=== PATIENT | male | born 1990 | race Caucasian/White ===

== ENCOUNTER → 2018-01-08 10:01 | Outpatient (CLI) | payer BC, SELFPAY ==
[2018-01-08 12:45] LABS: Anion Gap 10 (5-15); BUN 10 mg/dL (7-18); BUN/Creat Ratio 13.6 RATIO (10-20); Calcium,Total 8.6 mg/dL (8.5-10.1); Chloride 106 mmol/L (98-107); Cholesterol 205 mg/dL (200); Creatinine, Serum 0.74 mg/dL (0.70-1.30); EST Glomerular Filtration Rate 134 mL/min (>60); Est Glom Filt Rate - Afr Amer 162 mL/min (>60); Glucose 86 mg/dL (74-106); High Density Lipoprotein 67 mg/dL; Potassium 3.7 mmol/L (3.5-5.1); Sodium Level 139 mmol/L (136-145); Triglycerides 77 mg/dL; Very Low Density Lipoprotein 15 mg/dL (5-40)
== END ==
PROVIDERS: Family Provider Family Medicine; PCP Family Medicine; Visit Provider Family Medicine
DX: Z00.00 Encounter for general adult medical examination without abnormal findings (principal); F32.9 Major depressive disorder, single episode, unspecified
CPT/HCPCS: 36415; 80048; 80061; 84443

== ENCOUNTER 2022-11-21 13:10 | Emergency (ER) | payer BC, SELFPAY ==
[2022-11-21 13:11] VITALS: BP 162/107; PULSE 117; RESP 18; TEMP 36.4; O2SAT 100; BMI 29.2
[2022-11-21 13:20] VITALS: BP 159/125; PULSE 83; RESP 16; O2SAT 100
--- NOTE | 2022-11-21 13:42 | EKG12_ITS ---
Test Reason : SOB Blood Pressure : / mmHG Vent. Rate : 082 BPM Atrial Rate : 082 BPM P-R Int : 122 ms QRS Dur : 090 ms QT Int : 426 ms P-R-T Axes : 097 -19 -19 degrees QTc Int : 497 ms Normal sinus rhythm with sinus arrhythmia Prolonged QT Abnormal ECG Confirmed by MICHAEL DUBON, CINDI ([id number]), manager editorial MARQUIS GARCIA ([id number]) on 11/25/2022 8:53:53 AM Referred By: Confirmed By:CINDI RODRIGUEZ MD
--- NOTE | 2022-11-21 13:43 | ED.VIS.GI ---
HPI HPI - GI History of Present Illness Chief Complaint: Shortness of Breath Informant: patient Abdominal Pain/Flank Pain Onset: - (no abd pain) Nausea/Vomiting/Emesis GI Symptom: Positive for Nausea and Vomiting Onset: Days (4) Quality: Positive for Nonbilious; Negative for Blood streaks Severity: Severe Diarrhea/Melena/Hematochezia GI Symptom: Positive for Diarrhea; Negative for Melena or Hematochezia Onset: Days (3-4) Stool Quality: Positive for Loose Severity: Mild Associated Symptoms Associated Symptoms: Negative for Dysuria, Frequency or Hematuria Narrative Narrative: Patient has had vomiting and diarrhea for several days now, no abdominal pain. He is on medications for anxiety, alprazolam, as well as hypertension, lisinopril. He has not been able to take either of those medications at all for the last 3 days. This morning he woke up and felt a little short of breath. He states he had a stressful conversation with someone from work and that made him feel worse with regards to his breathing, and he states now for the past hour or so he has had some mild discomfort across to his chest nonlateralizing nonradiating. It is nonpleuritic. He denies any palpitations, near-syncope, syncope. No leg pain or swelling lately. No recent travel out of the area. No suspicious food intake, no known contact with anyone else who has been ill, no coughing or fevers/chills. [facility] Medical History Anxiety HTN (hypertension) Home Medications alprazolam 2 mg tablet 2 mg PO QHS 11/21/22 [History Last Taken Unknown] lisinopril 20 mg tablet 20 mg PO DAILY 11/21/22 [History Last Taken Unknown] promethazine 25 mg tablet 25 mg PO Q6H PRN PRN Nausea #20 TABLETS 11/21/22 [Rx Last Taken Unknown] Allergy/AdvReac Type Severity Reaction Status Date / Time No Known Allergies Allergy Verified 07/29/15 13:19 Social History Smoking Status: Current every day smoker tobacco type: cigarettes ROS ROS ED Constitutional Constitutional ED: Denies chills or fever(s) Eyes Eyes: Denies change in vision or diplopia ENT ENT ED: Denies rhinorrhea or sore throat Cardiovascular Cardiovascular: Reports chest pain; Denies palpitations Respiratory/Chest Respiratory/Chest: Reports dyspnea; Denies cough Gastrointestinal Gastrointestinal: Reports diarrhea, nausea and vomiting; Denies abdominal pain or melena Genitourinary Genitourinary ED: Denies dysuria or hematuria Musculoskeletal Musculoskeletal: Denies back pain or neck pain Integumentary Denies abscess or rash Neurologic Neurologic: Denies headache(s), paresthesias or weakness Psychiatric Psychiatric: Reports anxiety; Denies suicidal thoughts EXAM Physical Exam Const Vital Signs: 11/21/22 13:11 11/21/22 13:20 11/21/22 15:41 Temperature 97.6 F L Temperature Source Temporal Pulse Rate 117 H 83 78 Respiratory Rate 18 16 Blood Pressure 162/107 H 159/125 H 151/100 H Blood Pressure Mean 125 136 117 Pulse Ox 100 100 Oxygen Delivery Method Room Air Room Air Positive well nourished and well developed General Appearance ED: well developed and NAD HEENT Reports moist mucous membranes normocephalic and atraumatic Eyes PERRL and EOMs intact bilaterally Neck full ROM and supple Resp normal respiratory effort and clear to auscultation bilaterally Cardio regular rate, regular rhythm and no murmurs Rate: Negative for tachycardic GI non-tender and non-distended Auscultation: normoactive bowel sounds Palpation: soft Back/Spine no CVA tenderness General Back: other FROM Extremity normal to inspection General Extremety ED: Negative for edema, pulses abnormal or tenderness General Extremity: Negative for edema or pulses abnormal Neuro oriented x3, CN's II-XII intact bilaterally and no sensory deficits noted Sensorium / Orientation: awake and alert Motor Exam: strength 5/5 throughout Psych Mood & Affect: anxious Skin no rashes or lesions noted and no wounds MDM MDM MDM Narrative Medical decision making narrative: Screening labs were obtained as well as a chest x-ray given his complaints of vomiting and shortness of breath. No abdominal pain reported/admitted to. After giving the patient IV fluids and Zofran, he is feeling better although he did have another episode of vomiting and then was treated with Reglan which really helped and he was tolerating oral fluids after that. He had no more dyspnea even though we did not treat him with anything specific for that, I suspect some of that may have been anxiety. However, his labs returned showing elevated liver enzymes as well as a slightly elevated lipase. He has had no pain, so I went to obtain an ultrasound of the right upper quadrant, but upon discussing with the patient, he states he just had this as an outpatient 3 weeks ago because of elevated liver enzymes last year that were obtained by his PCP as an outpatient. I reviewed outside ultrasound from 10/27/2022, as well as LFTs from May 2022, both from [facility] [place]. In May, his AST was 373, ALT 260, alkaline phosphatase normal 79, total bilirubin 0.7. The abnormal labs are all slightly higher today, his alkaline phosphatase is still within normal limits, total bilirubin just slightly higher at 1.1. I discussed that with him. The etiology of this is undetermined, but the ultrasound that he had 3 weeks ago showed fatty infiltration of the liver and no gallbladder or biliary pathology and no cholelithiasis. It is unknown if his current symptoms are related to these abnormalities and fatty liver disease, or if he has acute viral gastroenteritis. He did not provide diarrhea here for me to send for testing, is feeling much better and keeping down oral fluids. Does not have an acute leukocytosis. At this time I think it is reasonable to send him home with close outpatient follow-up. He is amenable to that, his blood pressure is elevated but not emergently so, probably because he has not been able to take his blood pressure medication recently, he states his blood pressure was in the 170s when he was prescribed the lisinopril that he has been trying to take. I do not think he needs emergent intervention for the blood pressure, he continue taking the prescription. Discussed all this with his PCP, who also added that he was recently diagnosed with pulmonary sarcoidosis and has been on high-dose steroids which the patient neglected to tell me about, in addition he does drink alcohol which I advised him to abstain from until he can follow-up. He will be on a full liquid diet until then. Lab Data Attestation: I reviewed the patient's lab results. Labs: Laboratory Results - last 24 hr 11/21/22 11/21/22 14:05 14:05 WBC 6.0 RBC 5.07 Hgb 16.0 Hct 45.9 MCV 90.5 MCH 31.6 MCHC 34.9 RDW Std Deviation 43.8 RDW Coeff of Andrea 13.2 Plt Count 236 MPV 9.5 Immature Gran % (Auto) 0.300 Neut % (Auto) 72.4 H Lymph % (Auto) 16.2 L [place] % (Auto) 10.9 H Eos % (Auto) 0.0 Baso % (Auto) 0.2 Absolute Neuts (auto) 4.3 Absolute Lymphs (auto) 0.97 Nucleated RBC % 0 Sodium 135 L Potassium 3.1 L Chloride 97 L Carbon Dioxide 27.0 Anion Gap 11 BUN 14 Creatinine 1.20 Estim Creat Clear Calc 93.25 Est GFR (MDRD) Af Amer 89 Est GFR (MDRD) Non-Af 74 BUN/Creatinine Ratio 11.7 Glucose 115 H Calcium 10.1 Total Bilirubin 1.10 H AST 562 H ALT 330 H Alkaline Phosphatase 85 Troponin I High Sens 7 Total Protein 9.8 H Albumin 4.5 Globulin 5.3 H Albumin/Globulin Ratio 0.8 L Lipase 484 H Radiography Diagnostic Testing: Clinical Impression(s) from Imaging Studies Chest X-Ray 11/21/22 14:25 IMPRESSION: Normal x-ray examination of the chest. Electronically Signed: Casimiro Mccormack MD at 14:47 EST Reading Location ID and State: [facility] / [place] , Service support , Discharge Plan Triage Chief Complaint: Shortness of Breath Other Complaint: Nausea/Vomiting ED Provider: Roman Andrea Dx/Rx/DC Orders Clinical Impression: Gastroenteritis, Elevated liver enzymes, Fatty infiltration of liver, Elevated lipase Instructions: Viral Gastroenteritis, Full Liquid Diet Dc Prescriptions: New promethazine [promethazine] 25 mg tablet 25 mg PO Q6H PRN PRN (Reason: Nausea) Qty: 20 0RF No Action lisinopril 20 mg tablet 20 mg PO DAILY alprazolam 2 mg tablet 2 mg PO QHS Label Comments: take 1 tablet by mouth at bedtime if needed for up to 30 DAYS Primary Care Provider: Jean Marie Referrals: Jean Marie DO [Primary Care Provider] - (At the weekend. Call for appointment, will likely be seen by one of the nurse practitioners, you will need your blood tests rechecked.) Disposition Disposition: Home, Self Care
[2022-11-21] MEDS: Ondansetron 4 MG/2 ML Vial IV (14:14)
[2022-11-21] MEDS: 0.9% Normal Saline 1,000 ML 1000 ML IV (14:14)
[2022-11-21 14:20] LABS: Absolute Lymphocyte Count 0.97 X10^3/uL (0.83-4.51); Absolute Neutrophil Count 4.3 X10^3/uL (2.0-7.7); Basophil# 0.01 X10^3/uL; Basophil% 0.2 % (0-1); Hematocrit 45.9 % (40-54); Lymphocyte # 0.97 X10^3/ul (0.83-4.51); Lymphocyte % 16.2 % (19-41); Mean Corp Hgb Conc 34.9 g/dL (32-36); Mean Corpuscular Hgb 31.6 pg (27.0-32.0); Mean Corpuscular Volume 90.5 fL (80-94); Mean Platelet Vol. 9.5 fl (6.2-12.0); Monocyte# 0.65 X10^3/uL; Monocyte% 10.9 % (0-10); NRBC Flagged by Analyzer 0 % (0-5); Neutrophil # 4.33 X10^3/uL (2.7-7.7); Neutrophil % 72.4 % (47-70); Platelet Count 236 K/mm3 (150-450); RBC Distribution Width CV 13.2 % (11.6-14.6); RBC Distribution Width SD 43.8 fl (35.1-43.9); Red Blood Count 5.07 M/mm3 (4.6-6.2)
--- NOTE | 2022-11-21 14:25 | RAD_ITS ---
STUDY: X-RAY CHEST REASON FOR EXAM: Male, 32 years old. Shortness of breath, chills with nausea and vomiting. TECHNIQUE: PA and lateral views of the chest. COMPARISON: None. FINDINGS: The lungs are clear and expanded. There is no demonstrated pleural abnormality. Normal size heart. Normal mediastinum and liborio. Normal visualized pulmonary arteries. Normal visualized aortic arch and descending thoracic aorta. Normal visualized thoracic spine. Normal visualized ribs, clavicles, and shoulders. There is no demonstrated abnormality of the visualized soft tissue structures of the upper abdomen. RAD/Chest PA and Lateral IMPRESSION: Normal x-ray examination of the chest. Electronically Signed: Casimiro Mccormack MD at 14:47 EST ,
[2022-11-21 14:34] LABS: ALB/GLOB Ratio 0.8 RATIO (0.9-2.4); AST(SGOT) 562 U/L (15-37); Alanine Aminotransfer ALT/SGPT 330 U/L (16-61); Albumin, Serum 4.5 g/dL (3.2-5.0); Alkaline Phosphatase 85 U/L (45-117); Anion Gap 11 (5-15); BUN 14 mg/dL (7-18); BUN/Creat Ratio 11.7 RATIO (10-20); Calcium,Total 10.1 mg/dL (8.5-10.1); Chloride 97 mmol/L (98-107); EST Glomerular Filtration Rate 74 mL/min (>60); Est Glom Filt Rate - Afr Amer 89 mL/min (>60); Estimated Creatinine Clearance 93.25 ml/min; Globulin 5.3 g/dL (2.2-4.2); Glucose 115 mg/dL (74-106); Lipase 484 U/L (73-393); Potassium 3.1 mmol/L (3.5-5.1); Protein, Total 9.8 g/dL (6.4-8.2); Sodium Level 135 mmol/L (136-145); Troponin-I HS 7 pg/mL (3.0-78.0)
[2022-11-21 15:41] VITALS: BP 151/100; PULSE 78
[2022-11-21] MEDS: Metoclopramide 10 MG/2 ML Vial 5 MG IV (15:56)
== END 2022-11-21 17:30 | disposition home or self-care (01) ==
PROVIDERS: Emergency Provider Emergency Medicine; PCP Student in an Organized Health Care Education/Training Program; Visit Provider Emergency Medicine
DX: K52.9 Noninfective gastroenteritis and colitis, unspecified (principal); K76.0 Fatty (change of) liver, not elsewhere classified; D86.9 Sarcoidosis, unspecified; F41.9 Anxiety disorder, unspecified; I10 Essential (primary) hypertension; F17.210 Nicotine dependence, cigarettes, uncomplicated; R06.02 Shortness of breath; Z79.899 Other long term (current) drug therapy
CPT/HCPCS: 71046; 80053; 83690; 84484; 85025; 93005; 96361; 96374; 96375; 99283; J7030; A4216; J2405

== ENCOUNTER → 2023-01-26 | Outpatient (CLI) | payer BC, SELFPAY ==
--- NOTE | 2023-01-26 09:12 | US_ITS ---
STUDY: ABDOMINAL ULTRASOUND - ELASTOGRAPHY REASON FOR VISIT: Male, 32 years old. Fatty liver. TECHNIQUE: Liver stiffness measurements were obtained on a Phantom RS 85 ultrasound machine using a CA 1-7 probe following the SRU guidelines. 3 measurements were obtained using a 2-D-SWE method. TheIQR/M was 16 % suggesting a quality data set. TECHNICAL QUALITY: Adequate. COMPARISON: None. FINDINGS: Liver: Fatty infiltration of the liver. Median liver stiffness measured 9 kPa. Abdomen: There is no demonstrated mass lesion. US/Elastography Parenchyma/Organ IMPRESSION: Liver stiffness measures 9 kPa compatible with F2-F3 (Mild to moderate liver fibrosis) Metavir score. Electronically Signed: Casimiro Mccormack MD at 13:07 EDT ,
--- NOTE | 2023-01-26 09:15 | US_ITS ---
STUDY: ABDOMINAL ULTRASOUND - RIGHT UPPER QUADRANT REASON FOR VISIT: Male, 32 years old FATTY LIVER TECHNIQUE: Ultrasound evaluation of the right upper quadrant was performed with real-time and static mckinley-scale imaging. TECHNICAL QUALITY: Adequate. COMPARISON: None. FINDINGS: Liver: The liver is mildly enlarged and measures 18.9 cm. There is increased echogenicity consistent with fatty infiltration. The bile ducts are within normal limits. There is hepatic color flow. The direction of portal flow is hepatopetal. There is no demonstrated mass lesion. Gallbladder: Normal distended gallbladder. The gallbladder wall measures 1.9 mm. There is a negative sonographic Benjamin''s sign. There is no pericholecystic fluid. There are no gallstones. Common Bile Duct (C.B.D.): The common bile duct measures 4.8 mm. Pancreas: Normal size of the head, body and tail of the pancreas. There is increased echogenicity of the pancreas. There is no demonstrated pancreatic mass or cyst. Right Kidney: Normal size of the right kidney. The right kidney measures 11.6 cm x 6.2 cm x 6.7 cm. Normal renal cortex. The right cortex measures 1.6 cm. There is no demonstrated renal mass or cyst. There is no right hydronephrosis. US/Abdomen Limited IMPRESSION: Mild hepatomegaly and fatty infiltration of the liver. Electronically Signed: Casimiro Mccormack MD at 13:06 EDT ,
== END | disposition home or self-care (01) ==
PROVIDERS: PCP Student in an Organized Health Care Education/Training Program; Referring Provider Nurse Practitioner Family; Visit Provider Nurse Practitioner Family
DX: R79.89 Other specified abnormal findings of blood chemistry (principal); K76.0 Fatty (change of) liver, not elsewhere classified
CPT/HCPCS: 76705; 76981

== ENCOUNTER 2023-03-25 17:17 | Inpatient (IN) | payer BC, SELFPAY ==
[2023-03-25] VITALS (11 sets, daily range): BP systolic 104–165; BP diastolic 70–110; PULSE 97–120; RESP 18–30; TEMP 36.6–37.5; O2SAT 95–100; BMI 29.4; BMI 34.2
--- NOTE | 2023-03-25 17:46 | EKG12_ITS ---
Test Reason : SEIZURE Blood Pressure : / mmHG Vent. Rate : 111 BPM Atrial Rate : 111 BPM P-R Int : 140 ms QRS Dur : 080 ms QT Int : 368 ms P-R-T Axes : 041 006 031 degrees QTc Int : 500 ms Sinus tachycardia Minimal voltage criteria for LVH, may be normal variant ( R in aVL ) Inferior infarct , age undetermined Abnormal ECG Confirmed by VANESSA DUBON, GLORIA ([id number]), editor city MARQUIS GARCIA ([id number]) on 03/26/2023 10:41:24 AM Referred By: Confirmed By:GLORIA MENDEZ MD
[2023-03-25 18:01] LABS: Absolute Lymphocyte Count 4.32 X10^3/uL (0.83-4.51); Absolute Neutrophil Count 6.9 X10^3/uL (2.0-7.7); Basophil# 0.04 X10^3/uL; Basophil% 0.3 % (0-1); Eosinophil# 0.01 X10^3/uL; Eosinophils% 0.1 % (0-5); Hematocrit 50.8 % (40-54); Hemoglobin 16.6 g/dL (13.0-16.5); Lymphocyte # 4.32 X10^3/ul (0.83-4.51); Lymphocyte % 32.6 % (19-41); Mean Corp Hgb Conc 32.7 g/dL (32-36); Mean Corpuscular Hgb 31.2 pg (27.0-32.0); Mean Corpuscular Volume 95.5 fL (80-94); Mean Platelet Vol. 9.8 fl (6.2-12.0); Monocyte# 1.92 X10^3/uL; Monocyte% 14.5 % (0-10); NRBC Flagged by Analyzer 0 % (0-5); Neutrophil # 6.88 X10^3/uL (2.7-7.7); POSITIVE DIFFERENTIAL YES; Platelet Count 255 K/mm3 (150-450); RBC Distribution Width CV 13.3 % (11.6-14.6); RBC Distribution Width SD 47.3 fl (35.1-43.9); Red Blood Count 5.32 M/mm3 (4.6-6.2); White Blood Count 13.2 K/mm3 (4.4-11.0)
[2023-03-25] MEDS: Diphth,Pertuss(Acell),Tet Vac 0.5 ML Vial IM (18:12)
[2023-03-25] MEDS: Phenobarbital Sodium 130 MG/ML Vial 100 MG IV (18:14)
[2023-03-25 18:19] LABS: Differential Indicated SCAN CRITERIA MET
--- NOTE | 2023-03-25 18:20 | CT_ITS ---
STUDY: CT BRAIN WITHOUT CONTRAST REASON FOR EXAM: Male, 32 years old. New-onset seizure. RADIATION DOSAGE (If Supplied By Facility): CTDIvol = ( 44.99 ) mGy, DLP = ( 863.60 ) mGycm TECHNIQUE: Transaxial CT imaging of the brain was performed without administration of intravenous contrast material. Individualized dose optimization techniques were used for this CT. COMPARISON: No relevant priors. FINDINGS: Large soft tissue hematoma over the right parietal vertex. Normal calvarium. There is asymmetry of the ventricles consistent with an anatomic variant. Normal white matter tracts of the cerebral hemispheres. Normal basal ganglia and thalami. Normal brainstem. Normal cerebellum. There is no intracranial hemorrhage. There are no findings of an acute ischemic infarction. Normal visualized paranasal sinuses. CT/Brain/Head without Contrast IMPRESSION: 1. No evidence of acute intracranial or calvarial abnormality. 2. Soft tissue hematoma of the right parietal vertex. AIDOC was utilized to assist in identifying pertinent positive findings in this case. Electronically Signed: Heron Buckner DO at 18:44 EDT ,
[2023-03-25 18:23] LABS: International Normalized Ratio 1.3; Prothrombin Time (Protime)PT. 15.9 SECONDS (11.7-14.9)
[2023-03-25 18:28] LABS: AST(SGOT) 704 U/L (15-37); Alanine Aminotransfer ALT/SGPT 440 U/L (16-61); Alkaline Phosphatase 83 U/L (45-117); Anion Gap 29 (5-15); BUN 27 mg/dL (7-18); Calcium,Total 10.4 mg/dL (8.5-10.1); Chloride 94 mmol/L (98-107); Creatinine, Serum 2.45 mg/dL (0.70-1.30); EST Glomerular Filtration Rate 32 mL/min (>60); Est Glom Filt Rate - Afr Amer 39 mL/min (>60); Estimated Creatinine Clearance 45.68 ml/min; Globulin 5.1 g/dL (2.2-4.2); Glucose 140 mg/dL (74-106); Potassium 2.8 mmol/L (3.5-5.1); Protein, Total 10.1 g/dL (6.4-8.2); Sodium Level 131 mmol/L (136-145)
[2023-03-25 18:39] LABS: Alcohol, Blood (Medical)-Serum < 3.0 mg/dL
[2023-03-25 18:56] LABS: Differential Comment SCANNED
--- NOTE | 2023-03-25 19:26 | EX.ED.DYSGE1 ---
HPI History of Present Illness Chief Complaint: Seizure Detail of Chief Complaint: First-time generalized tonic-clonic seizure and head trauma Informant: patient, spouse/S.O. and EMS Onset/Context/Timing Onset: Today and Hours Context: Sudden Onset Timing: Intermittent Quality: Patient collapsed and had a generalized tonic-clonic seizure prior to hitti Location: Client area loss prevention manager Current Severity: Mild Maximum Severity: Severe Worsened by: Alcohol withdrawal seizure most likely Relieved by: Not applicable Associated Symptoms Associated Symptoms: Headache and head trauma Narrative Narrative: Patient is a 32-year-old male with history of hypertension who has not had a drink since Thursday. He drinks 8-9 vodka beverages per night. He was in detox 6 years ago. He is uncertain of his last tetanus shot. He does complain of headache. [place] double vision, blurred vision loss of vision. Eyes photophobia sonophobia. He denies neck pain. He denies paresthesia, anesthesia or motor weakness upper or lower extremity presently at the time of the impact. There was no incontinence of urine or stool. He denies chest discomfort. No shortness of breath. He denied nausea or vomiting. Patient has no other complaints. is present. states he has not had any eat since Thursday. He reports he has not felt well for the past several days. He was unaware that he had palpitations or rapid heartbeat. He denies prior history of alcohol withdrawal seizure. He denies seizures as a child Prior similar symptoms: No Recent Illness/Hospitalization: No [facility] Medical History Anxiety HTN (hypertension) Seizure Home Medications alprazolam 2 mg tablet 2 mg PO QHS 11/21/22 [History Last Taken Unknown] lisinopril 20 mg tablet 20 mg PO DAILY 11/21/22 [History Last Taken Unknown] promethazine 25 mg tablet 25 mg PO Q6H PRN PRN Nausea #20 TABLETS 11/21/22 [Rx Last Taken Unknown] Allergy/AdvReac Type Severity Reaction Status Date / Time No Known Allergies Allergy Verified 07/29/15 13:19 Surgical History no surgical history Social History (Updated 03/25/23 @ 19:[address] Kaveh Bryan MD) household members: spouse and family Smoking Status: Former smoker alcohol intake: current substance use type: does not use ROS ROS ED Constitutional Constitutional ED: Denies chills, fever(s), subjective, sweats or weight loss Eyes Eyes: Denies blurry vision, change in vision or diplopia ENT ENT ED: Denies ear pain, rhinorrhea or sore throat Cardiovascular Cardiovascular: Denies chest pain, palpitations or racing heartbeat Respiratory/Chest Respiratory/Chest: Denies cough, dyspnea or dyspnea on exertion Gastrointestinal Gastrointestinal: Denies abdominal pain, constipation, diarrhea, melena, nausea or vomiting Genitourinary Genitourinary ED: Denies dysuria or hematuria Musculoskeletal Musculoskeletal: Denies arthralgias, back pain, myalgias or neck pain Integumentary Reports other Details: Scalp laceration 3.3 cm ; Denies abscess, Abrasions or rash Neurologic Neurologic: Reports headache(s); Denies paresthesias or weakness Psychiatric Psychiatric: Denies anxiety or depression Hematologic/Lymphatic Hematologic/Lymphatic: Reports systems reviewed and no addt'l complaints, except as documented EXAM Physical Exam Const Vital Signs: 03/25/23 17:18 03/25/23 17:37 03/25/23 17:37 Temperature 98.7 F 98 F Temperature Source Oral Temporal Pulse Rate 119 H 120 H Respiratory Rate 30 H 24 H Blood Pressure 117/76 104/70 Blood Pressure Mean 89 81 Pulse Ox 98 Oxygen Delivery Method Room Air Room Air Positive well nourished and well developed General Appearance ED: well developed; Negative for pallor HEENT Reports moist mucous membranes HEENT Narrative: Patient has a 3.3 cm scalp laceration right parietal area with a significant hematoma. There is no active bleeding. The laceration will require repair. Eyes PERRL and EOMs intact bilaterally Eyes Narrative: There is no nystagmus. There is no subconjunctival hemorrhage. General Eye ED: Negative for pale conjunctiva or scleral icterus Neck no lymphadenopathy, supple and no JVD Neck Narrative: There is no midline posterior neck pain to palpation. Full active range of motion without hesitation, grimacing or pain. Chest Wall inspection of chest normal and palpation of chest normal Resp normal respiratory effort and clear to auscultation bilaterally Cardio regular rhythm, S1 normal heart sound, S2 normal heart sound and no murmurs Rate: tachycardic GI normal to inspection, nondistended, normoactive bowel sounds, non-tender, non-distended and no masses; Negative for hepatosplenomegaly Palpation: soft Back/Spine no CVA tenderness Thoracic Spine / Upper Back: Negative for thoracic spinal tenderness Lumbar Spine / Lower Back: Negative for lumbar spinal tenderness Extremity normal to inspection General Extremety ED: Negative for edema or tenderness General Extremity: Negative for edema Neuro oriented x3, CN's II-XII intact bilaterally and no sensory deficits noted Neuro Narrative: Patient is hyperreflexic. He has 3-4 beats of clonus at the ankles. He has tremors at rest. Sensorium / Orientation: alert Motor Exam: strength 5/5 throughout Psych Psych Narrative: Patient is slightly agitated. He states he does not want to be here. Skin no rashes or lesions noted and skin turgor normal General Skin Exam: elasticity normal; Negative for jaundice or pallor MDM MDM MDM Narrative Medical decision making narrative: Suspect patient's seizure is a alcohol withdrawal seizure. Because he is complained of headache as head trauma will obtain CT to rule out intracranial bleed. PT/INR was obtained to assess for liver function. CBC to assess H&H and platelet count. Electrolyte to assess Kos, renal and. Liver panel was also obtained. Since patient is tachycardic with tremors hyperreflexic with clonus he received 100 mg of phenobarbital IV push. Patient's scalp flexion was repaired. Patient was informed of his laboratory results and need for admission. He began to [facility] and he would stay here. I informed that he will be in the hospital for 2 to 5 days and there is no bordering. History & Record Review Discussion w/independent historian: Patient and Significant other Lab Data Attestation: I reviewed the patient's lab results. Lab results narrative: Leukocytosis without a shift. H&H is unremarkable platelet count is normal. PT/INR is unremarkable. Electrolytes unremarkable sodium 131, potassium of 2.8, CO2 of 8 consistent with a seizure and anion gap of 29. BUN is elevated 27 with a creatinine of 2.45. Estimated GFR is 32. Glucose is elevated 140. Total bili is elevated 1.4. AST and ALT are elevated at 704 and 440 most likely due to alcoholic liver disease. Albumin is normal. Alcohol is nondetected. Labs: Laboratory Results - last 24 hr 03/25/23 17:04 WBC 13.2 H RBC 5.32 Hgb 16.6 H Hct 50.8 MCV 95.5 H MCH 31.2 MCHC 32.7 RDW Std Deviation 47.3 H RDW Coeff of Andrea 13.3 Plt Count 255 MPV 9.8 Immature Gran % (Auto) 0.500 Neut % (Auto) 52.0 Lymph % (Auto) 32.6 [place] % (Auto) 14.5 H Eos % (Auto) 0.1 Baso % (Auto) 0.3 Absolute Neuts (auto) 6.9 Absolute Lymphs (auto) 4.32 Nucleated RBC % 0 Differential Comment SCANNED Diff Path Review January foll PT 15.9 H INR 1.3 Sodium 131 L Potassium 2.8 L Chloride 94 L Carbon Dioxide 8.0 L* Anion Gap 29 H BUN 27 H Creatinine 2.45 H Estim Creat Clear Calc 45.68 Est GFR (MDRD) Af Amer 39 L Est GFR (MDRD) Non-Af 32 L BUN/Creatinine Ratio 11.0 Glucose 140 H Calcium 10.4 H Total Bilirubin 1.40 H AST 704 H ALT 440 H Alkaline Phosphatase 83 Total Protein 10.1 H Albumin 5.0 Globulin 5.1 H Albumin/Globulin Ratio 1.0 Ethyl Alcohol < 3.0 Radiography Diagnostic Testing: Clinical Impression(s) from Imaging Studies Brain CT 03/25/23 18:20 IMPRESSION: 1. No evidence of acute intracranial or calvarial abnormality. 2. Soft tissue hematoma of the right parietal vertex. AIDOC was utilized to assist in identifying pertinent positive findings in this case. Electronically Signed: Heron Buckner DO at 18:44 EDT Reading Location ID and State: [address] [place] [address] Tel [phone], Service support , Procedures Other Procedures Procedure(s): Scalp laceration: Patient was prepped draped sterile manner. The area was Nestabs with 2.5 cc of 1% lidocaine via local infiltration. Clot was evacuated. Wound was irrigated with 150 cc of normal saline. Using staple gun 6 jose daniel were placed. Patient had good cosmesis and approximation. Patient did complain of slight discomfort with placement of the last staple. Critical Care Time Critical Care Time: Yes Critical care time (excluding procedures): 30-74 minutes (31), Including time spent: (History, physical, documentation, tryptase laboratories alts, history from outside source,), Discussing w/Patient &/or Family/Senior Computer Specialist, Discussing w/Consultants and Arranging Admission or Transfer Discharge Plan Dx/Rx/DC Orders Clinical Impression: MEREDITH (acute kidney injury), ALD (alcoholic liver disease), Sinus tachycardia, Closed head injury, Alcohol withdrawal seizure, Acute hyponatremia, Laceration of scalp, Acute hypokalemia Disposition Disposition: Acute Care [facility]
[2023-03-25] MEDS: Phenobarbital Sodium 130 MG/ML Vial 150 MG IV (20:00)
[2023-03-25] MEDS: Lidocaine 1% (20 ml mdv) 20 ML Vial INFILT (20:03)
--- NOTE | 2023-03-25 20:04 | HP.PCM.HOS_ITS ---
HPI - General General Date of Admission: 03/25/23 Date of Service: 03/25/23 Chief Complaint: Acute EtOH withdrawal seizure. 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 Patient in the emergency room with improvement in mental status with administration of phenobarb IV load with additional given now back to his mental status baseline answering questions appropriately and alert. As noted patient with significant alcohol consumption with last drink the Thursday prior. He is currently complaining of a throbbing headache with no alteration to his vision nor any photophobia or sonophobia. who is also present reports that he has had significantly poor intake since Thursday following cessation of his alcohol consumption. In the ED patient with notable clonus as well as tremors and agitation for ED physician. Work-up in the ED included T98.7, heart rate initially 119, BP 170/76, respiratory rate 30, 98% on room air, CBC with WC 13.2, hemoglobin 16.6, platelet 255 without marked shift, coags with PT 15.9, INR 1.3, CMP with sodium 131, potassium 2.8, chloride 94, carbon dioxide 8, anion gap 29, BUN/creatinine 27/2.45, glucose 140, calcium 10.4, total bilirubin 1.40, AST/ALT 704/440, ethyl alcohol less than 3, CT of the brain with no evidence of acute intracranial or calvarial abnormality with a soft tissue hematoma of the right parietal vertex. In the ED patient administered tetanus update and phenobarbital 100 mg IV x1. In the ED following discussion with ED physician patient administered an additional 100 mg IV x1 phenobarbital. Patient did have jose daniel placed in a 3.3 cm scalp laceration in the right parietal area with a significant hematoma. [facility] Medical History (Updated 03/25/23 @ 20:[address] Myra Maldonado MD) ALD (alcoholic liver disease) Anxiety Asthma Current every day non-nicotine vaping Former cigarette smoker GERD (gastroesophageal reflux disease) History of alcoholic hepatitis History of nicotine vaping HTN (hypertension) Seizure Home Medications alprazolam 2 mg tablet 2 mg PO QHS sleep 11/21/22 [History Last Taken 03/24/23] lisinopril 20 mg tablet 20 mg PO DAILY htn 11/21/22 [History Last Taken Unknown] promethazine 25 mg tablet 25 mg PO Q6H PRN PRN Nausea #20 TABLETS 11/21/22 [Rx Last Taken Unknown] amlodipine 10 mg tablet 10 mg PO DAILY 03/25/23 [History Last Taken Unknown] famotidine 20 mg tablet 20 mg PO DAILY acid reflu 03/25/23 [History Last Taken Unknown] Allergy/AdvReac Type Severity Reaction Status Date / Time No Known Allergies Allergy Verified 07/29/15 13:19 Family History (Updated 03/25/23 @ 20:[address] Myra Maldonado MD) Mother Anxiety and depression Father Alcoholism Hypertension Surgical History (Updated 03/25/23 @ 20:[address] Myra Maldonado MD) H/O wisdom tooth extraction S/P shoulder surgery Surgical History no surgical history Social History (Updated 03/25/23 @ 20:[address] Myra Maldonado MD) household members: spouse and family Smoking Status: Former smoker Electronic Cigarette Use: without nicotine how long ago did patient quit smoking: Quit cig tob 5-6 yrs prior->nicotine vaping->now non-nicotine vaping. alcohol intake: current details: 8-9 Vodka drinks q HS. substance use type: does not use ROS ROS Narrative Admission Review of Systems: CONSTITUTIONAL: No weight loss, fever, chills, + weakness or fatigue. HEENT: Eyes: No visual loss, blurred vision, double vision or yellow sclerae. Ears, Nose, Throat: No hearing loss, sneezing, congestion, runny nose or sore throat. SKIN: + laceration to the scalp. CARDIOVASCULAR: No chest pain, chest pressure or chest discomfort, palpitations, edema, orthopnea, syncopal events. RESPIRATORY: No shortness of breath, cough or sputum, wheezing, hemoptysis. GASTROINTESTINAL: + anorexia, No nausea, vomiting or diarrhea, abdominal pain, melena, BRBPR. GENITOURINARY: No dysuria, frequency, urgency or retention. NEUROLOGICAL: + Tremors, agitation, seizure, headache. No syncope, paralysis, ataxia, numbness or tingling in the extremities, focal weakness, change in bowel or bladder control. MUSCULOSKELETAL: + muscle, back pain, joint pain or stiffness. HEMATOLOGIC: + bleeding. LYMPHATICS: No enlarged nodes. No history of splenectomy. PSYCHIATRIC: + history of anxiety. ENDOCRINOLOGIC: No reports of sweating, cold or heat intolerance. No polyuria or polydipsia. ALLERGIES: + history of asthma. Vital Signs Vital Signs Vital Signs: 03/25/23 17:18 03/25/23 17:37 03/25/23 17:37 Temperature 98.7 F 98 F Temperature Source Oral Temporal Pulse Rate 119 H 120 H Respiratory Rate 30 H 24 H Blood Pressure 117/76 104/70 Blood Pressure Mean 89 81 Pulse Ox 98 Oxygen Delivery Method Room Air Room Air Weight Weight: 245 lb Body Mass Index (BMI) 34.2 Physical Exam Narrative Physical Examination: General: Awake, alert, oriented to self, place and recent events, postictal phase completely resolved, cooperative, seated upright in the ED bed, mildly agitated and still mildly tremulous, receiving second dose of IV phenobarbital load. Skin: Normal color, normal turgor, no icterus, no cyanosis except for scalp laceration approximately 3.3 cm in length to the right parietal region with a significant hematoma, no acute current bleeding noted. HEENT: AT/NC, EOMI, PERRLA, dry MM, no carotid bruits or JVD noted. Lungs: CTA bilaterally, moderate effort, mild decrease BL bases, no rales, ronchi or wheezing. Heart: Tachycardic with regular rhythm; no gallop, rub audible. Abdomen: Soft, NTTP, ND, normal BS, + HM. Extremities: No cyanosis, clubbing, or edema. Neurological: Patient awake, alert, oriented as noted, cognitive function improving, postictal phase appears currently completely resolved, pupils equally reactive to light and accommodation, cranial nerves grossly normal, moving all 4 extremities, no focal deficits, strength improving, moderately globally decreased, still having mild agitation and mildly tremulous. Psychiatric: Affect appears mildly agitated but appears to be improving, receivi ng second dose of IV phenobarbital load, does admit to anxiety but denies any depression. Results Lab / Micro Data 03/25/23 17:04 03/25/23 17:04 Labs: Laboratory Results - last 24 hr 03/25/23 17:04: WBC 13.2 H, RBC 5.32, Hgb 16.6 H, Hct 50.8, MCV 95.5 H, MCH 31.2, MCHC 32.7, RDW Std Deviation 47.3 H, RDW Coeff of Andrea 13.3, Plt Count 255, MPV 9.8, Immature Gran % (Auto) 0.500, Neut % (Auto) 52.0, Lymph % (Auto) 32.6, [place] % (Auto) 14.5 H, Eos % (Auto) 0.1, Baso % (Auto) 0.3, Absolute Neuts (auto) 6.9, Absolute Lymphs (auto) 4.32, Nucleated RBC % 0, Differential Comment SCANNED, Diff Path Review January, PT 15.9 H, INR 1.3, Sodium 131 L, Potassium 2.8 L, Chloride 94 L, Carbon Dioxide 8.0 L*, Anion Gap 29 H, BUN 27 H, Creatinine 2.45 H, Estim Creat Clear Calc 45.68, Est GFR (MDRD) Af Amer 39 L, Est GFR (MDRD) Non-Af 32 L, BUN/Creatinine Ratio 11.0, Glucose 140 H, Calcium 10.4 H, Total Bilirubin 1.40 H, AST 704 H, ALT 440 H, Alkaline Phosphatase 83, Total Protein 10.1 H, Albumin 5.0, Globulin 5.1 H, Albumin/Globulin Ratio 1.0, Ethyl Alcohol < 3.[address] 03/25/23 18:20 IMPRESSION: 1. No evidence of acute intracranial or calvarial abnormality. 2. Soft tissue hematoma of the right parietal vertex. AIDOC was utilized to assist in identifying pertinent positive findings in this case. Electronically Signed: Heron Buckner DO at 18:44 EDT Reading Location ID and State: [facility] / [place] Tel [phone], Service support , Assessment & Plan Assessment/Plan (1) Alcohol withdrawal seizure: PLAN: Plan The patient is a 32 y/o M w/ PMHx: EtOH abuse with associated Chronic alcoholic transaminitis/hyperbilirubinemia (8-9 Vodka drinks q HS with last intake Thursday prior to current presentation), Anxiety, Hypertension, History of prior Cigarette Tobacco use->Nicotine vaping->now vaping without nicotine, Asthma, Obesity who presents to the [facility] ED on 03/25/23 with history of onset generalized tonic-clonic seizure with unfortunate head trauma noted to have 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 #1. New-Onset seizure secondary to EtOH withdrawal: Will admit to ICU, maintain on telemetry on seizure precautions, ICU Physician consultation. Normal EtOH consumption noted to be 8-9 vodka beverages nightly with last detox approximately 6 years prior, last drink noted to be the Thursday prior to current presentation. Will maintain on CIWA, will continue phenobarbital taper regimen, maintain on MVI, folic acid, thiamine. To be cautious will also obtain TSH, obtain mag, obtain UTox, monitor further evaluation liver derangements, correct electrolyte imbalances, will obtain hemoglobin A1c as well as the urinalysis and an acetone given anion gap 24 with mild hyperglycemia although certainly most likely secondary to his alcohol withdrawal seizure. PRN ativan IV per CIWA and for recurrent seizure activity. Will obtain mag, phos levels and supplement as needed, will continue to correct electrolyte derangements and further evaluate as noted. Currently patient with notable hematoma not currently actively bleeding with jose daniel in place, will place pressure dressing to assist with significant size. #2. Hyperbilirubinemia, transaminitis/acute on chronic alcoholic hepatitis: Adm ission CMP w/ total bilirubin 1.40, AST/ALT 704/440, increasing steadly from prior, 11/21/22 ED evaluation for N/V/D w/ CMP at that time w/ T. bili 1.10, AST/ALT 562/330 with lipase mildly elevated in 400 range and from OSH records Liver US 10/27/2022 w/ fatty infiltration of the liver and no gallbladder or biliary pathology and no cholelithiasis and 05/2022 CMP w/ AST/ALT 599607, Alk phos 79, T Bili 0.7. Patient has had outpatient work-up but unclear exact evaluations, given worsening status and ongoing EtOH heavy intake likely primary etiology. Given concern for loss to follow-up will repeat liver US, obtain hepatitis panel to be cautious to assure no concurrent issues in addition to his alcoholism, request GI involvement to encourage more aggressive early follow-up. #3. Acute kidney injury: Likely multifactorial, admission BUN/Cr 27/2.45, prior baseline creatinine noted to be 0.7-0.8, was elevated 11/21/22 1.20 but had N/V/D at that time thus suspect was still elevated from the prior noted baseline. Will hydrate, hold nephrotoxic medications, obtain FeNa and UA, if worsens further o btain renal US, low threshold to involve Nephrology. #4. Hyponatremia, suspected hypovolemic/hypochloremia: Admission Na 131, Chl 94, will continue aggressive hydration and trend CMP. #5. Hypokalemia: Admission K+ 2.8, magnesium requested, supplementation given, repeat level in AM. #6. Asthma: Not on any chronic regimen, will have as needed albuterol, encourage patient to avoid being outside for prolonged times during this high level of pollution exposure. #7. Hypertension: Continue home regimen including Norvasc, holding JOSELO inhibitor given acute kidney injury as noted, PRN hydralazine. #8. History of cigarette tobacco, nicotine vaping currently now vaping without nicotine: Given his asthma history would benefit from complete cessation which was encouraged. #9. Obesity: Weight loss and lifestyle changes encouraged. #10. DVT prophylaxis: Low risk. #11. Code status: Full Code. Admission Evaluation Time spent evaluating chart, patient history, patient evalu ation, care planning and discussion with specialists: 75 minutes. Charges/Coding Visit Charges Inpatient E&M: 67835 Init Hosp L3
[2023-03-25] MEDS: 0.9% Normal Saline 1,000 ML 999 ML IV (21:03)
[2023-03-25] MEDS: 0.9% Normal Saline 1,000 ML 150 ML IV (21:04)
[2023-03-25] MEDS: Pantoprazole Sodium 20 MG Tablet PO (21:04)
[2023-03-25] MEDS: Potassium Chloride Oral Tablet 20 MEQ 40 MEQ PO (21:04)
[2023-03-25] MEDS: Phenobarbital 32.4 MG Tablet 64.8 MG PO (21:05)
[2023-03-25 21:32] LABS: Bacteria 0 SEEN /hpf (None Seen); Mucous, Urine 0 SEEN /hpf (<or=2+); Red Blood Cells-Urine 0 SEEN /hpf (0-5); Squamous Epithelial Cells - UA 0 SEEN /hpf (0-5)
[2023-03-25 21:39] LABS: Magnesium 2.3 mg/dL (1.6-2.6); Phosphorus 6.4 mg/dL (2.5-4.9)
[2023-03-25] MEDS: Acetaminophen 325 MG Tablet 650 MG PO (21:40)
[2023-03-25 21:54] LABS: Color, Urine Yellow (Yellow); Glucose, Dipstick Normal (Normal); Ketone-Dipstick 50 mg/dl (Negative); Leukocyte Esterase-Dipstick 25 /ul (Negative); Nitrite-Dipstick Negative (Negative); Occult Blood-Urine 10 /ul (Negative); Protein-Dipstick 100 mg/dl (Negative); Specific Gravity, Urine 1.025 (1.002-1.030); Urine Bilirubin Dipstick Negative (Negative); Urine Clarity Cloudy (Clear); Urine Urobilinogen 4 mg/dl (Normal); White Blood Cells 0-5 SEEN /hpf (0-5)
[2023-03-25 21:55] LABS: Amorphous Sediment 1+
[2023-03-25 22:00] LABS: Hemoglobin A1c 5.4 % (3.8-5.6)
[2023-03-25 22:22] LABS: Urine Sodium 10 mmol/L (Not Establ.)
[2023-03-25] MEDS: amLODIPine 10 MG Tablet PO (22:38)
[2023-03-25] MEDS: hydrALAZINE 20 MG/ML Vial 10 MG IV (23:12)
[2023-03-25 23:20] LABS: Hepatitis B Surface Antibody Non-Reactive; Hepatitis B Surface Antigen Non-Reactive (Nonreactive); Hepatitis C Antibody Non-Reactive (Nonreactive)
[2023-03-26] VITALS (16 sets, daily range): BP systolic 120–153; BP diastolic 68–102; PULSE 81–127; RESP 12–22; TEMP 36.9–37.4; O2SAT 94–97
[2023-03-26] MEDS: Phenobarbital 32.4 MG Tablet 64.8 MG PO ×6 (02:39→21:19)
[2023-03-26 05:14] LABS: Absolute Lymphocyte Count 0.92 X10^3/uL (0.83-4.51); Absolute Neutrophil Count 5.7 X10^3/uL (2.0-7.7); Basophil# 0.01 X10^3/uL; Basophil% 0.1 % (0-1); Eosinophil# 0.01 X10^3/uL; Eosinophils% 0.1 % (0-5); Hematocrit 38.2 % (40-54); Hemoglobin 13.1 g/dL (13.0-16.5); Lymphocyte # 0.92 X10^3/ul (0.83-4.51); Lymphocyte % 11.4 % (19-41); Mean Corp Hgb Conc 34.3 g/dL (32-36); Mean Corpuscular Volume 90.5 fL (80-94); Mean Platelet Vol. 9.6 fl (6.2-12.0); Monocyte# 1.38 X10^3/uL; Monocyte% 17.1 % (0-10); NRBC Flagged by Analyzer 0 % (0-5); Neutrophil # 5.74 X10^3/uL (2.7-7.7); Neutrophil % 71.1 % (47-70); Platelet Count 158 K/mm3 (150-450); RBC Distribution Width CV 13.3 % (11.6-14.6); RBC Distribution Width SD 44.6 fl (35.1-43.9); Red Blood Count 4.22 M/mm3 (4.6-6.2); White Blood Count 8.1 K/mm3 (4.4-11.0)
[2023-03-26] MEDS: 0.9% Normal Saline 1,000 ML 150 ML IV (05:41)
[2023-03-26] MEDS: Gabapentin 300 MG Capsule PO (05:49)
--- NOTE | 2023-03-26 05:55 | US_ITS ---
STUDY: ABDOMINAL ULTRASOUND - RIGHT UPPER QUADRANT REASON FOR VISIT: Male, 32 years old alcoholic hepatitis, worsening labs TECHNIQUE: Ultrasound evaluation of the right upper quadrant was performed with real-time and static mckinley-scale imaging. TECHNICAL QUALITY: Adequate. COMPARISON: Comparison is made with prior study of January 26, 2023. FINDINGS: Liver: The liver is enlarged and measures 18 cm. There is increased echogenicity consistent with fatty infiltration. The bile ducts are within normal limits. There is hepatic color flow. The direction of portal flow is hepatopetal. There is no demonstrated mass lesion. Gallbladder: Normal distended gallbladder. The gallbladder wall measures 2 mm. There is a negative sonographic Benjamin''s sign. There is no pericholecystic fluid. There are no gallstones. Common Bile Duct (C.B.D.): The common bile duct measures 3.4 mm. Pancreas: There is nonvisualization of the pancreas due to overlying bowel gas. There is normal echogenicity of the pancreas. There is no demonstrated pancreatic mass or cyst. Right Kidney: Normal size of the right kidney. The right kidney measures 12.6 cm x 6.7 cm x 7 cm. Normal renal cortex. The right cortex measures 2.1 cm. There is no demonstrated renal mass or cyst. There is no right hydronephrosis. US/Liver IMPRESSION: Mild hepatomegaly and diffuse fatty infiltration of the liver. Electronically Signed: Casimiro Mccormack MD at 14:27 EDT ,
[2023-03-26 06:06] LABS: AST(SGOT) 422 U/L (15-37); Alanine Aminotransfer ALT/SGPT 296 U/L (16-61); Albumin, Serum 3.6 g/dL (3.2-5.0); Alkaline Phosphatase 50 U/L (45-117); Anion Gap 10 (5-15); BUN 25 mg/dL (7-18); BUN/Creat Ratio 16.7 RATIO (10-20); Calcium,Total 8.3 mg/dL (8.5-10.1); Chloride 102 mmol/L (98-107); EST Glomerular Filtration Rate 57 mL/min (>60); Est Glom Filt Rate - Afr Amer 69 mL/min (>60); Estimated Creatinine Clearance 72.32 ml/min; Globulin 3.6 g/dL (2.2-4.2); Glucose 86 mg/dL (74-106); Potassium 2.9 mmol/L (3.5-5.1); Protein, Total 7.2 g/dL (6.4-8.2); Sodium Level 134 mmol/L (136-145)
--- NOTE | 2023-03-26 06:52 | EX.PCM.CONCC ---
Assessment & Plan Assessment/Plan (1) Alcohol withdrawal seizure: (2) MEREDITH (acute kidney injury): PLAN: Plan RECOMMENDATIONS: 1. Consider neurology evaluation today. 2. Supplemental IV fluid hydration as tolerated. 3. Seizure precautions and as needed Ativan. 4. Encourage incentive spirometer use while in bed and mobilize patient as tolerated. 5. We will sign off from a critical care perspective. IMPRESSIONS: 1. Alcohol withdrawal seizure The patient presented to the hospital with sentinel seizure activity. He has a longstanding history of alcohol dependency, having last consumed EtOH approximately 5-[address] imaging of the head was unremarkable. The patient was subsequently placed on phenobarbital. He has no focal neurological deficits this morning. I would recommend that a consultation be placed to neurology for recommendations. Nevertheless, I do suspect that this was likely the consequence of alcohol withdrawal. Continue seizure precautions for now. 2. Acute kidney injury Most likely prerenal in etiology. The patient's renal function has improved with volume expansion. Continue supplemental IV fluid as tolerated. Continue to monitor urine output. No current indication for renal replacement therapy. 3. History of alcohol dependency The patient's last alcoholic beverage was approximately 5-6 days ago. Therefore, he should be outside of the window for any acute alcohol withdrawal symptoms. I do suspect that his phenobarbital can likely be discontinued. This note was generated with [employer] dictation software. It may contain incorrect words, spelling, and punctuation that were not noted in checking the note before signing. HPI Consult Data Date of Consult: 03/26/23 HPI Narrative Reason for Consultation: Alcohol withdrawal HPI Narrative: The patient is a 32-year-old male, with a history as outlined below, who presented to the emergency department via EMS on March 25 with sentinel seizure activity. The patient has a longstanding history of alcohol dependency. He reported that he typically drinks 2-3 vodka beverages per day during the week. During the weekends, he typically drinks a greater amount. He denied ever having experienced alcohol withdrawal symptoms. He has no personal history of epilepsy. The patient reported that he last had alcohol 5 days ago. He reported that he felt terrible over this past weekend, but by Thursday was feeling well again. He thought that potentially he had the flu. The patient was at work yesterday when he collapsed with generalized tonic-clonic seizure activity. On presentation to the emergency department, the patient was noted to be afebrile and hemodynamically stable. He was maintaining appropriate oxygen saturations on room air. Initial laboratory evaluation revealed an elevated white blood cell count of 13,000. Chemistry profile was notable for a sodium of 131, potassium of 2.8, chloride of 94, bicarbonate of 8.0 and creatinine of 2.45. Total bili was increased at 1.4 with an AST of 704 and ALT of 440. CT head revealed a soft tissue hematoma of the right parietal vertex. The patient did receive phenobarbital in the emergency department. The patient's head laceration required stapling. The patient was placed on supplemental IV fluids along with thiamine, folic acid and a phenobarbital taper. He was admitted to the medical intensive care unit for further management. [facility] Medical History (Updated 03/25/23 @ 20:[address] Myra Maldonado MD) ALD (alcoholic liver disease) Anxiety Asthma Current every day non-nicotine vaping Former cigarette smoker GERD (gastroesophageal reflux disease) History of alcoholic hepatitis History of nicotine vaping HTN (hypertension) Seizure Home Medications alprazolam 2 mg tablet 2 mg PO QHS sleep 11/21/22 [History Last Taken 03/24/23] lisinopril 20 mg tablet 20 mg PO DAILY htn 11/21/22 [History Last Taken Unknown] promethazine 25 mg tablet 25 mg PO Q6H PRN PRN Nausea #20 TABLETS 11/21/22 [Rx Last Taken Unknown] amlodipine 10 mg tablet 10 mg PO DAILY 03/25/23 [History Last Taken Unknown] famotidine 20 mg tablet 20 mg PO DAILY acid reflu 03/25/23 [History Last Taken Unknown] Allergy/AdvReac Type Severity Reaction Status Date / Time No Known Allergies Allergy Verified 07/29/15 13:19 Family History (Updated 03/25/23 @ 20:[address] Myra Maldonado MD) Mother Anxiety and depression Father Alcoholism Hypertension Surgical History (Updated 03/25/23 @ 20:[address] Myra Maldonado MD) H/O wisdom tooth extraction S/P shoulder surgery Surgical History no surgical history Social History (Updated 03/25/23 @ 20:[address] Myra Maldonado MD) household members: spouse and family Smoking Status: Former smoker Electronic Cigarette Use: without nicotine how long ago did patient quit smoking: Quit cig tob 5-6 yrs prior->nicotine vaping->now non-nicotine vaping. alcohol intake: current details: 8-9 Vodka drinks q HS. substance use type: does not use ROS ROS Narrative 10 systems were reviewed with pertinent positives as noted in the HPI above. Physical Exam Const alert and no apparent distress General Appearance: cooperative HEENT normocephalic, head/scalp atraumatic and moist oral mucous membranes Eyes PERRL, EOMs intact bilaterally and conjunctivae normal Neck supple General: trachea midline Chest inspection of chest normal Resp normal respiratory effort Auscultation: Negative for rales, rhonchi or wheezes Cardio regular rate and regular rhythm GI normal to inspection, nondistended, normoactive bowel sounds Extremity no clubbing, cyanosis or edema Skin no rashes or lesions noted Neuro oriented x3, CN's II-XII intact bilaterally, moves all extremities and no focal motor deficits Psych cooperative and affect normal Lab / Micro Data 03/26/23 05:00 03/26/23 05:00 Labs: Laboratory Results - last 24 hr 03/25/23 17:04: WBC 13.2 H, RBC 5.32, Hgb 16.6 H, Hct 50.8, MCV 95.5 H, MCH 31.2, MCHC 32.7, RDW Std Deviation 47.3 H, RDW Coeff of Andrea 13.3, Plt Count 255, MPV 9.8, Immature Gran % (Auto) 0.500, Neut % (Auto) 52.0, Lymph % (Auto) 32.6, [place] % (Auto) 14.5 H, Eos % (Auto) 0.1, Baso % (Auto) 0.3, Absolute Neuts (auto) 6.9, Absolute Lymphs (auto) 4.32, Nucleated RBC % 0, Differential Comment SCANNED, Diff Path Review January foll, PT 15.9 H, INR 1.3, Sodium 131 L, Potassium 2.8 L, Chloride 94 L, Carbon Dioxide 8.0 L*, Anion Gap 29 H, BUN 27 H, Creatinine 2.45 H, Estim Creat Clear Calc 45.68, Est GFR (MDRD) Af Amer 39 L, Est GFR (MDRD) Non-Af 32 L, BUN/Creatinine Ratio 11.0, Glucose 140 H, Hemoglobin A1c 5.4, Calcium 10.4 H, Phosphorus 6.4 H, Magnesium 2.3, Total Bilirubin 1.40 H, AST 704 H, ALT 440 H, Alkaline Phosphatase 83, Total Protein 10.1 H, Albumin 5.0, Globulin 5.1 H, Albumin/Globulin Ratio 1.0, Ethyl Alcohol < 3.0 03/25/23 21:21: Urine Color Yellow, Urine Clarity Cloudy, Urine pH 5.0, Ur Specific [place] 1.025, Urine Protein 100 H, Urine Glucose (UA) Normal, Urine Ketones 50 H, Urine Occult Blood 10 H, Urine Nitrite Negative, Urine Bilirubin Negative, Urine Urobilinogen 4 H, Ur Leukocyte Esterase 25 H, Urine RBC 0 SEEN, Urine WBC 0-5 SEEN, Ur Squamous Epith Cells 0 SEEN, Amorphous Sediment 1+, Urine Bacteria 0 SEEN, Urine Mucus 0 SEEN, Ur Random Sodium 10, Urine Creatinine 449.00 03/25/23 21:30: Acetone Level SMALL H, Hep Bs Antigen Non-Reactive, Hep Bs Antibody Non-Reactive, Hepatitis C Antibody Non-Reactive 03/26/23 05:00: WBC 8.1, RBC 4.22 L, Hgb 13.1, Hct 38.2 L, MCV 90.5 D, MCH 31.0, MCHC 34.3, RDW Std Deviation 44.6 H, RDW Coeff of Andrea 13.3, Plt Count 158, MPV 9.6, Immature Gran % (Auto) 0.200, Neut % (Auto) 71.1 H, Lymph % (Auto) 11.4 L, [place] % (Auto) 17.1 H, Eos % (Auto) 0.1, Baso % (Auto) 0.1, Absolute Neuts (auto) 5.7, Absolute Lymphs (auto) 0.92, Nucleated RBC % 0, Sodium 134 L, Potassium 2.9 L, Chloride 102, Carbon Dioxide 22.0, Anion Gap 10, BUN 25 H, Creatinine 1.50 H, Estim Creat Clear Calc 72.32, Est GFR (MDRD) Af Amer 69, Est GFR (MDRD) Non-Af 57 L, BUN/Creatinine Ratio 16.7, Glucose 86, Calcium 8.3 L, Total Bilirubin 1.10 H, AST 422 H, ALT 296 H, Alkaline Phosphatase 50, Total Protein 7.2, Albumin 3.6, Globulin 3.6, Albumin/Globulin Ratio 1.[address] 03/25/23 18:20 IMPRESSION: 1. No evidence of acute intracranial or calvarial abnormality. 2. Soft tissue hematoma of the right parietal vertex. AIDOC was utilized to assist in identifying pertinent positive findings in this case. Electronically Signed: Heron Buckner DO at 18:44 EDT Reading Location ID and State: [address] [place] [address] Tel [phone], Service support , Charges/Coding Visit Charges Inpatient E&M: 59345 Init Hosp L3
[2023-03-26] MEDS: Pantoprazole Sodium 20 MG Tablet PO ×2 (08:34→21:19)
[2023-03-26] MEDS: Multivitamins,Ther W-Minerals Tablet 1 TABLET PO (08:34)
[2023-03-26] MEDS: Thiamine Hydrochloride 100 MG Tablet PO (08:34)
[2023-03-26] MEDS: Folic Acid 1 MG Tablet PO (08:34)
[2023-03-26] MEDS: amLODIPine 10 MG Tablet PO (08:35)
--- NOTE | 2023-03-26 09:18 | PN.HOSP_ITS ---
Subjective Subjective Doing well, no issues overnight Objective Data Objective Data Vital Signs: Vital Signs Temp Pulse Resp BP Pulse Ox O2 Del Method O2 Flow Rate 99.1 F 90 12 134/97 H 96 Room Air 96 03/26/23 09:00 03/26/23 09:00 03/26/23 09:00 03/26/23 09:00 03/26/23 09:00 03/26/23 09:00 03/25/23 23:00 Oxygen Flow Rate (L/min) 96 Oxygen Delivery Method Room Air Weight: 239 lb Body Mass Index (BMI) 34.2 Intake & Output: Intake and Output for Last 24 Hours 03/25/23 03/26/23 03/27/23 03:59 03:59 03:59 Intake Total 3100 / 3200 150 / 150 Output Total 200 / 700 800 / 800 Balance 2900 / 2500 -650 / -650 Lab / Micro Data 03/26/23 05:00 03/26/23 05:00 Labs: Laboratory Results - last 24 hr 03/25/23 17:04: WBC 13.2 H, RBC 5.32, Hgb 16.6 H, Hct 50.8, MCV 95.5 H, MCH 31.2, MCHC 32.7, RDW Std Deviation 47.3 H, RDW Coeff of Andrea 13.3, Plt Count 255, MPV 9.8, Immature Gran % (Auto) 0.500, Neut % (Auto) 52.0, Lymph % (Auto) 32.6, [place] % (Auto) 14.5 H, Eos % (Auto) 0.1, Baso % (Auto) 0.3, Absolute Neuts (auto) 6.9, Absolute Lymphs (auto) 4.32, Nucleated RBC % 0, Differential Comment SCANNED, Diff Path Review January foll, PT 15.9 H, INR 1.3, Sodium 131 L, Potassium 2.8 L, Chloride 94 L, Carbon Dioxide 8.0 L*, Anion Gap 29 H, BUN 27 H, Creatinine 2.45 H, Estim Creat Clear Calc 45.68, Est GFR (MDRD) Af Amer 39 L, Est GFR (MDRD) Non-Af 32 L, BUN/Creatinine Ratio 11.0, Glucose 140 H, Hemoglobin A1c 5.4, Calcium 10.4 H, Phosphorus 6.4 H, Magnesium 2.3, Total Bilirubin 1.40 H , AST 704 H, ALT 440 H, Alkaline Phosphatase 83, Total Protein 10.1 H, Albumin 5.0, Globulin 5.1 H, Albumin/Globulin Ratio 1.0, Ethyl Alcohol < 3.0 03/25/23 21:21: Urine Color Yellow, Urine Clarity Cloudy, Urine pH 5.0, Ur Specific [place] 1.025, Urine Protein 100 H, Urine Glucose (UA) Normal, Urine Ketones 50 H, Urine Occult Blood 10 H, Urine Nitrite Negative, Urine Bilirubin Negative, Urine Urobilinogen 4 H, Ur Leukocyte Esterase 25 H, Urine RBC 0 SEEN, Urine WBC 0-5 SEEN, Ur Squamous Epith Cells 0 SEEN, Amorphous Sediment 1+, Urine Bacteria 0 SEEN, Urine Mucus 0 SEEN, Ur Random Sodium 10, Urine Creatinine 449.00 03/25/23 21:30: Acetone Level SMALL H, Hep Bs Antigen Non-Reactive, Hep Bs Antibody Non-Reactive, Hepatitis C Antibody Non-Reactive 03/26/23 05:00: WBC 8.1, RBC 4.22 L, Hgb 13.1, Hct 38.2 L, MCV 90.5 D, MCH 31.0, MCHC 34.3, RDW Std Deviation 44.6 H, RDW Coeff of Andrea 13.3, Plt Count 158, MPV 9.6, Immature Gran % (Auto) 0.200, Neut % (Auto) 71.1 H, Lymph % (Auto) 11.4 L, [place] % (Auto) 17.1 H, Eos % (Auto) 0.1, Baso % (Auto) 0.1, Absolute Neuts (auto) 5.7, Absolute Lymphs (auto) 0.92, Nucleated RBC % 0, Sodium 134 L, Potassium 2.9 L, Chloride 102, Carbon Dioxide 22.0, Anion Gap 10, BUN 25 H, Creatinine 1.50 H, Estim Creat Clear Calc 72.32, Est GFR (MDRD) Af Amer 69, Est GFR (MDRD) Non-Af 57 L, BUN/Creatinine Ratio 16.7, Glucose 86, Calcium 8.3 L, Total Bilirubin 1.10 H, AST 422 H, ALT 296 H, Alkaline Phosphatase 50, Total Protein 7.2, Albumin 3.6, Globulin 3.6, Albumin/Globulin Ratio 1.0 Radiography Diagnostic Testing: Radiology Impression Brain CT 03/25/23 18:20 IMPRESSION: 1. No evidence of acute intracranial or calvarial abnormality. 2. Soft tissue hematoma of the right parietal vertex. AIDOC was utilized to assist in identifying pertinent positive findings in this case. Electronically Signed: Heron Buckner DO at 18:44 EDT Reading Location ID and State: [address] [place] [address] Tel [phone], Service support , Physical Exam Narrative General: Alert, Oriented x3, Cooperative, No apparent distress HEENT: Atraumatic, PERRLA, EOMI, Normocephalic Oral: Moist Mucosa Neck: Supple, No JVD Lungs: Clear to auscultation, Normal air movement, No rhonchi, No wheeze, No rales Cardiovascular: Regular rate, Regular Rhythm, Normal S1, Normal S2, No murmurs Abdomen: Soft, Non Tender, Non-Distended, No Hepato-splenomegaly Extremities: No edema, Capillary Refill Less than 3 Seconds Skin: No rashes, No breakdown Musculoskeletal: No Tenderness to Palpation of Joints or Extremities Neurological: Cranial nerves II-XII grossly intact, Motor Exam 5/5 strength throughout, Sensory exam intact to light touch and pain Psych/Mental Status: Normal Affect, Appropriate Assessment & Plan Assessment/Plan (1) Alcohol withdrawal seizure: PLAN: Plan 1. New onset seizure likely secondary to alcohol use/LFT elevation/MEREDITH ? Not going through alcohol withdrawal however we will keep the phenobarbital and given his seizures ? We will consult neurology ? He can follow-up with gastroenterology as an outpatient ? His LFT elevation is due to his alcohol use appears to be improving ? Continue with IV fluids 2. Hypertension ? Blood pressures are stable ? Resume his home blood pressure medications 3. GERD ? Stable ? Continue with Pepcid 4. Anxiety ? Stable ? continue with alprazolam DVT: Ambulation Charges/Coding Visit Charges Inpatient E&M: 89410 Subs Hosp L2
[2023-03-26 13:20] LABS: Pathologist Review Reviewed
--- NOTE | 2023-03-26 13:35 | CASEMGMT ---
RN JOHN Face to Face with patient for initial transition planning/care coordination assessment. RN CM introduced self and role at [facility]. Patient lying in bed, alert and oriented. Patient willing to participate in assessment and is able to answer all questions appropriately. Care providers, pharmacy, and demographics verified. Patient wishes to discharge home, denies need for home health at this time. Patient states he has no further needs or concerns at this time. CM to follow for discharge planning needs that may arise. PCP: Frank Specialists: none Preferred Pharmacy: [facility] Insurance: [place] Prescription Benefit: yes Living Will/HPOA: none LNOK: Living Arrangements: Patient lives with in a single story home with 2 steps to enter. Patient states he is independent at home. Transportation: self, DME/HHC: Patient denies DME in the home. No previous HHC or SNF. Patient states he has on average 3 cocktails daily of bourbon or vodka, patient denies resources for quitting Disposition Plan: Patient to discharge home with family support and follow-up plans in place. Krysta BROWNEN, RN, CM
--- NOTE | 2023-03-26 13:56 | MRI_ITS ---
INDICATION: New Seizure EXAMINATION: MRI - MR Brain WO/W Contrast TECHNIQUE: Multiplanar and multisequence MR images of the brain were obtained without and with gadolinium. IV Contrast Dosage and Agent: None. COMPARISON: 03/25/2023 CT FINDINGS: BRAIN PARENCHYMA: No MRI evidence of hemorrhage. No evidence of acute infarct. 1.6 x 0.5 cm anterior left parafalcine meningioma. There is preservation of the mckinley/white matter interface. Normal sella turcica, pituitary gland, infundibular stalk, optic chiasm and hypothalamus. Posterior fossa structures are unremarkable. INTERNAL AUDITORY CANALS: The internal auditory canals are well visualized and patent. No mass identified. CSF SPACES: Appropriate for age. No hydrocephalus. Basal cisterns are patent. VASCULAR SYSTEM: Normal flow voids in the major intracranial circulation. CALVARIUM, SKULL BASE, PARANASAL SINUSES AND MASTOID AIR CELLS: 3.5 x 1.8 cm heterogeneous structure in the posterior right scalp with foci of internal enhancement. Substantially increased size of subgaleal hematoma. Clear. No expansile changes. ORBITS: Both globes, extraocular muscles, optic nerves and retrobulbar fat appear unremarkable. MRI/Brain W/WO Contrast IMPRESSION: There is active extravasation into the right parietal scalp subgaleal hematoma. Left parafalcine small meningioma. No acute abnormal intracranial finding. Electronically Signed: Anjel Phan MD at 20:35 EDT ,
--- NOTE | 2023-03-26 15:22 | NURSING ---
report called to JUDY Post RN at this time
--- NOTE | 2023-03-26 18:53 | CON.PCM.GI_ITS ---
HPI Consult Data Date of Consult: 03/26/23 HPI Narrative Reason for Consultation: Hepatitis HPI Narrative: ALEN STORM, is a 32-year-old with history of GERD, EtOH abuse with associated Chronic alcoholic transaminitis/hyperbilirubinemia. He says that he does not drink every day. He probably drinks 3-4 times a week. He presented to the [facility] ED on 03/25/23 with history of onset generalized tonic- clonic seizure with unfortunate head trauma noted to have collapsed in his receptionist nurse area with no loss of bowel or bladder nor any tongue biting but unfortunately notable laceration to the back of his head with bleeding prompting ED evaluation. Patient in the emergency room with improvement in mental status with administration of phenobarb IV load with additional given now back to his mental status baseline answering questions appropriately and alert. As noted patient with significant alcohol consumption with last drink the Thursday prior. He is currently complaining of a throbbing headache with no alteration to his vision nor any photophobia or sonophobia. who is also present reports that he has had significantly poor intake since Thursday following cessation of his alcohol consumption. In the ED patient with notable clonus as well as tremors and agitation for ED physician. Work-up in the ED included T98.7, heart rate initially 119, BP 170/76, respiratory rate 30, 98% on room air, CBC with WC 13.2, hemoglobin 16.6, platelet 255 without marked shift, coags with PT 15.9, INR 1.3, CMP with sodium 131, potassium 2.8, chloride 94, carbon dioxide 8, anion gap 29, BUN/creatinine 27/2.45, glucose 140, calcium 10.4, total bilirubin 1.40, AST/ALT 704/440, ethyl alcohol less than 3, CT of the brain with no evidence of acute intracranial or calvarial abnormality with a soft tissue hematoma of the right parietal vertex. In the ED patient administered tetanus update and phenobarbital 100 mg IV x1. In the ED following discussion with ED physician patient administered an additional 100 mg IV x1 phenobarbital. Patient did have jose daniel placed in a 3.3 cm scalp laceration in the right parietal area with a significant hematoma. At this time he denies any headache, dizziness, chest pain or shortness of b reath and has not shown any signs of withdrawal. [facility] Medical History (Updated 03/26/23 @ 18:[address] Whitehead Friend, DO) ALD (alcoholic liver disease) Anxiety Asthma Current every day non-nicotine vaping Former cigarette smoker GERD (gastroesophageal reflux disease) History of alcoholic hepatitis History of nicotine vaping HTN (hypertension) Seizure Home Medications alprazolam 2 mg tablet 2 mg PO QHS sleep 11/21/22 [History Last Taken 03/24/23] lisinopril 20 mg tablet 20 mg PO DAILY htn 11/21/22 [History Last Taken Unknown] promethazine 25 mg tablet 25 mg PO Q6H PRN PRN Nausea #20 TABLETS 11/21/22 [Rx Last Taken Unknown] amlodipine 10 mg tablet 10 mg PO DAILY 03/25/23 [History Last Taken Unknown] famotidine 20 mg tablet 20 mg PO DAILY acid reflu 03/25/23 [History Last Taken Unknown] Allergy/AdvReac Type Severity Reaction Status Date / Time No Known Allergies Allergy Verified 07/29/15 13:19 Family History (Updated 03/25/23 @ 20:[address] Myra Maldonado MD) Mother Anxiety and depression Father Alcoholism Hypertension Surgical History (Updated 03/25/23 @ 20:[address] Myra Maldonado MD) H/O wisdom tooth extraction S/P shoulder surgery Surgical History no surgical history Social History (Updated 03/25/23 @ 20:[address] Myra Maldonado MD) household members: spouse and family Smoking Status: Former smoker Electronic Cigarette Use: without nicotine how long ago did patient quit smoking: Quit cig tob 5-6 yrs prior->nicotine vaping->now non-nicotine vaping. alcohol intake: current details: 8-9 Vodka drinks q HS. substance use type: does not use ROS ROS Narrative 10 systems were reviewed with pertinent positives as noted in the HPI above. Physical Exam Narrative General: Alert, Oriented x3, Cooperative, No apparent distress HEENT: Atraumatic, PERRLA, EOMI, Normocephalic Oral: Moist Mucosa Neck: Supple, No JVD Lungs: Clear to auscultation, Normal air movement, No rhonchi, No wheeze, No rales Cardiovascular: Regular rate, Regular Rhythm, Normal S1, Normal S2, No murmurs Abdomen: Soft, Non Tender, Non-Distended, No Hepato-splenomegaly Extremities: No edema, Capillary Refill Less than 3 Seconds Skin: No rashes, No breakdown Musculoskeletal: No Tenderness to Palpation of Joints or Extremities Neurological: Cranial nerves II-XII grossly intact, Motor Exam 5/5 strength throughout, Sensory exam intact to light touch and pain Psych/Mental Status: Normal Affect, Appropriate Lab / Micro Data 03/26/23 05:00 03/26/23 05:00 Labs: Laboratory Results - last 24 hr 03/25/23 17:04: Differential Comment SCANNED, Diff Path Review Reviewed, Hemoglobin A1c 5.4, Phosphorus 6.4 H, Magnesium 2.3 03/25/23 21:21: Urine Color Yellow, Urine Clarity Cloudy, Urine pH 5.0, Ur Specific [place] 1.025, Urine Protein 100 H, Urine Glucose (UA) Normal, Urine Ketones 50 H, Urine Occult Blood 10 H, Urine Nitrite Negative, Urine Bilirubin Negative, Urine Urobilinogen 4 H, Ur Leukocyte Esterase 25 H, Urine RBC 0 SEEN, Urine WBC 0-5 SEEN, Ur Squamous Epith Cells 0 SEEN, Amorphous Sediment 1+, Urine Bacteria 0 SEEN, Urine Mucus 0 SEEN, Ur Random Sodium 10, Urine Creatinine 449.00 03/25/23 21:30: Acetone Level SMALL H, Hep Bs Antigen Non-Reactive, Hep Bs Antibody Non-Reactive, Hepatitis C Antibody Non-Reactive 03/26/23 05:00: WBC 8.1, RBC 4.22 L, Hgb 13.1, Hct 38.2 L, MCV 90.5 D, MCH 31.0, MCHC 34.3, RDW Std Deviation 44.6 H, RDW Coeff of Andrea 13.3, Plt Count 158, MPV 9.6, Immature Gran % (Auto) 0.200, Neut % (Auto) 71.1 H, Lymph % (Auto) 11.4 L, [place] % (Auto) 17.1 H, Eos % (Auto) 0.1, Baso % (Auto) 0.1, Absolute Neuts (auto) 5.7, Absolute Lymphs (auto) 0.92, Nucleated RBC % 0, Sodium 134 L, Potassium 2.9 L, Chloride 102, Carbon Dioxide 22.0, Anion Gap 10, BUN 25 H, Creatinine 1.50 H, Estim Creat Clear Calc 72.32, Est GFR (MDRD) Af Amer 69, Est GFR (MDRD) Non-Af 57 L, BUN/Creatinine Ratio 16.7, Glucose 86, Calcium 8.3 L, Total Bilirubin 1.10 H, AST 422 H, ALT 296 H, Alkaline Phosphatase 50, Total Protein 7.2, Albumin 3.6, Globulin 3.6, Albumin/Globulin Ratio 1.0 Radiology Impression Liver Ultrasound 03/26/23 05:55 IMPRESSION: Mild hepatomegaly and diffuse fatty infiltration of the liver. Electronically Signed: Casimiro Mccormack MD at 14:27 EDT , Assessment & Plan Assessment/Plan (1) Alcohol withdrawal seizure: (2) Alcoholic hepatitis: PLAN: Plan 32-year-old with past medical history of possible alcohol abuse who presents with altered mental status followed by tonic-clonic seizure resulting in head trauma. His labs are consistent with acute alcoholic hepatitis. He has a low Madrey score of 20. His mental status is a lot better so he does not need any steroids. total bilirubin 1.40, AST/ALT 704/440, increasing steadly from prior, 11/21/22 ED evaluation for N/V/D w/ CMP at that time w/ T. bili 1.10, AST/ALT 562/330 with lipase mildly elevated in 400 range and from OSH records Liver US 10/27/2022 w/ fatty infiltration of the liver and no gallbladder or biliary pathology and no cholelithiasis and 05/2022 CMP w/ AST/ALT 052422, Alk phos 79, T Bili 0.7. Acute on chronic alcoholic hepatitis: Patient said that he will not drink anymore. He should have a good recovery as his blood work and his imaging is consistent with fatty liver disease from alcohol usage and not cirrhosis. I do not think he needs Mucomyst for glutathione repletion. I would recommend to check him for hepatitis A and hepatitis B and he should get vaccinated if he is negative or if his titers are low. I would also check him for hemochromatosis and amyloidosis as they can be secondary consequences from alcoholic hepatitis and chronic alcoholism. Patient is doing well at this time. We will continue to follow. Patient has had outpatient work-up but unclear exact evaluations, given worsening status and ongoing EtOH heavy intake likely primary etiology. Given concern for loss to follow-up will repeat liver US, obtain hepatitis panel to be cautious to assure no concurrent issues in addition to his alcoholism, request GI involvement to encourage more aggressive early follow-up. Charges/Coding Visit Charges Inpatient E&M: 28785 Init Hosp L3
[2023-03-26] MEDS: traZODone 100 MG Tablet PO (21:19)
[2023-03-27] MEDS: Phenobarbital 32.4 MG Tablet 64.8 MG PO ×4 (02:08→14:36)
[2023-03-27 02:11] VITALS: BP 144/96; PULSE 96; RESP 18; TEMP 36.9; O2SAT 96
[2023-03-27 05:07] LABS: Hepatitis A AB, Total Negative (Negative)
[2023-03-27 05:42] VITALS: BP 134/98; PULSE 80; RESP 16; TEMP 36.8; O2SAT 96
[2023-03-27 06:00] VITALS: BMI 34.7
[2023-03-27 06:41] LABS: Absolute Lymphocyte Count 1.26 X10^3/uL (0.83-4.51); Absolute Neutrophil Count 2.5 X10^3/uL (2.0-7.7); Basophil# 0.01 X10^3/uL; Basophil% 0.2 % (0-1); Eosinophil# 0.03 X10^3/uL; Eosinophils% 0.6 % (0-5); Hematocrit 35.8 % (40-54); Hemoglobin 12.6 g/dL (13.0-16.5); Lymphocyte # 1.26 X10^3/ul (0.83-4.51); Lymphocyte % 26.6 % (19-41); Mean Corp Hgb Conc 35.2 g/dL (32-36); Mean Corpuscular Hgb 31.7 pg (27.0-32.0); Mean Corpuscular Volume 90.2 fL (80-94); Mean Platelet Vol. 9.8 fl (6.2-12.0); Monocyte# 0.95 X10^3/uL; NRBC Flagged by Analyzer 0 % (0-5); Neutrophil # 2.49 X10^3/uL (2.7-7.7); Neutrophil % 52.6 % (47-70); Platelet Count 148 K/mm3 (150-450); RBC Distribution Width CV 13.2 % (11.6-14.6); RBC Distribution Width SD 43.6 fl (35.1-43.9); Red Blood Count 3.97 M/mm3 (4.6-6.2); White Blood Count 4.7 K/mm3 (4.4-11.0)
[2023-03-27 07:22] LABS: ALB/GLOB Ratio 0.9 RATIO (0.9-2.4); AST(SGOT) 342 U/L (15-37); Alanine Aminotransfer ALT/SGPT 261 U/L (16-61); Albumin, Serum 3.4 g/dL (3.2-5.0); Alkaline Phosphatase 51 U/L (45-117); Anion Gap 10 (5-15); BUN 14 mg/dL (7-18); Calcium,Total 8.6 mg/dL (8.5-10.1); Chloride 104 mmol/L (98-107); Creatinine, Serum 0.88 mg/dL (0.70-1.30); EST Glomerular Filtration Rate 106 mL/min (>60); Est Glom Filt Rate - Afr Amer 128 mL/min (>60); Estimated Creatinine Clearance 123.28 ml/min; Globulin 3.7 g/dL (2.2-4.2); Glucose 83 mg/dL (74-106); Potassium 2.9 mmol/L (3.5-5.1); Protein, Total 7.1 g/dL (6.4-8.2); Sodium Level 137 mmol/L (136-145)
[2023-03-27 07:30] VITALS: O2SAT 96
[2023-03-27 09:18] LABS: Phosphorus 3.4 mg/dL (2.5-4.9)
[2023-03-27 10:05] VITALS: BP 136/101; PULSE 89; RESP 16; TEMP 36.8; O2SAT 95
[2023-03-27] MEDS: amLODIPine 10 MG Tablet PO (10:30)
[2023-03-27] MEDS: Pantoprazole Sodium 20 MG Tablet PO (10:30)
[2023-03-27] MEDS: Potassium Chloride Oral Tablet 20 MEQ 60 MEQ PO (10:32)
[2023-03-27] MEDS: Multivitamins,Ther W-Minerals Tablet 1 TABLET PO (11:16)
[2023-03-27] MEDS: Thiamine Hydrochloride 100 MG Tablet PO (11:16)
[2023-03-27] MEDS: Folic Acid 1 MG Tablet PO (11:16)
--- NOTE | 2023-03-27 13:52 | DCINST_ITS ---
Discharge Instructions Diet Discharge Diet: No restrictions Activity Discharge Activity: Return to Normal Activity Dressing / Incision Call your doctor if you observe: Fever of 101 or Higher, Shortness of breath, Dizziness, Fainting spells, Swelling in the ankles, Chest pain and Increased palpitations (irregular heartbeat) Follow Up Care Test Results: Test results from this visit will be discussed in further detail at your follow- up appointment, if applicable. Discharge Plan Admission Admit Date/Time: 03/25/23 20:25 Attending Provider: Zaid Mcintosh Primary Care Provider: Jean Marie Consulting Providers: Myra Maldonado; Jad Joseph Instructions Additional Instructions / Restrictions: Follow-up with your PCP for referral to neurology and to obtain a BMP to monitor your potassium which is low Discharge Orders/Prescriptions Prescriptions: New potassium chloride 20 mEq tablet extended release 20 meq PO DAILY Qty: 20 0RF Continued lisinopril 20 mg tablet 20 mg PO DAILY alprazolam 2 mg tablet 2 mg PO QHS Patient Comments: take 1 tablet by mouth at bedtime if needed for up to 30 DAYS promethazine 25 mg tablet 25 mg PO Q6H PRN PRN (Reason: Nausea) Qty: 20 0RF amlodipine 10 mg tablet 10 mg PO DAILY famotidine 20 mg tablet 20 mg PO DAILY Referrals / Follow Up: Jean Marie DO [Primary Care Provider] - Within 1 Week Disposition Disposition (needs filled in before D/C Order can be placed): Home, Self Care
[2023-03-27 14:39] VITALS: BP 148/103; PULSE 94; RESP 16; TEMP 36.6; O2SAT 98
--- NOTE | 2023-03-27 15:58 | PCM.DC.SUM ---
Providers Date of Admission: 03/25/23 Primary Care Physician: Dr. Jean Marie, Consultations 03/25/23 20:46 Consult: Gastroenterology Routine Consulting Provider: [facility] Reason for Consult: Acute on chronic alcoholic hepatitis, worsening, to establish. EMERGENT Consult: No Notified: Yes Date Notified: 03/25/23 Time Notified: 20:30 Method of Notification: Text Consult: Customer Insight Analyst / Pulmonary Medicine Routine Consulting Provider: Jad Joseph Reason for Consult: Acute EtOH withdrawal seizure EMERGENT Consult: No Notified: Yes Date Notified: 03/25/23 Time Notified: 20:33 Method of Notification: Text Reason For Visit: ACUTE ETOH WITHDRAWL SEIZURE Diagnosis Discharge Diagnosis (1) Alcohol withdrawal seizure: Status: Acute Code(s): F10.939 - Alcohol use, unspecified with withdrawal, unspecified; R56.9 - Unspecified convulsions (2) Alcoholic hepatitis: Status: Acute Code(s): K70.10 - Alcoholic hepatitis without ascites Medications at Discharge Home Medications alprazolam 2 mg tablet 2 mg PO QHS sleep 11/21/22 lisinopril 20 mg tablet 20 mg PO DAILY htn 11/21/22 promethazine 25 mg tablet 25 mg PO Q6H PRN PRN Nausea #20 TABLETS 11/21/22 amlodipine 10 mg tablet 10 mg PO DAILY 03/25/23 famotidine 20 mg tablet 20 mg PO DAILY acid reflu 03/25/23 potassium chloride 20 mEq tablet,extended release 20 meq PO DAILY #20 tabs 03/27/23 Hospital Course Operations None Procedures None Summary of Care Provided Minutes Spent on Discharge: 40 Hospital Course: Per HPI:The patient is a 32 y/o M w/ PMHx: GERD, EtOH abuse with associated Chronic alcoholic transaminitis/hyperbilirubinemia (8-9 Vodka drinks q HS with last intake Thursday prior to current presentation), Anxiety, Hypertension, History of prior Cigarette Tobacco use->Nicotine vaping->now vaping without nicotine, Asthma, Obesity who presents to the [facility] ED on 03/25/23 with history of onset generalized tonic-clonic seizure with unfortunate head trauma noted 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 Patient in the emergency room with improvement in mental status with administration of phenobarb IV load with additional given now back to his mental status baseline answering questions appropriately and alert. As noted patient with significant alcohol consumption with last drink the Thursday prior. He is currently complaining of a throbbing headache with no alteration to his vision nor any photophobia or sonophobia. who is also present reports that he has had significantly poor intake since Thursday following cessation of his alcohol consumption. In the ED patient with notable clonus as well as tremors and agitation for ED physician. Work-up in the ED included T98.7, heart rate initially 119, BP 170/76, respiratory rate 30, 98% on room air, CBC with WC 13.2, hemoglobin 16.6, platelet 255 without marked shift, coags with PT 15.9, INR 1.3, CMP with sodium 131, potassium 2.8, chloride 94, carbon dioxide 8, anion gap 29, BUN/creatinine 27/2.45, glucose 140, calcium 10.4, total bilirubin 1.40, AST/ALT 704/440, ethyl alcohol less than 3, CT of the brain with no evidence of acute intracranial or calvarial abnormality with a soft tissue hematoma of the right parietal vertex. In the ED patient administered tetanus update and phenobarbital 100 mg IV x1. In the ED following discussion with ED physician patient administered an additional 100 mg IV x1 phenobarbital. Patient did have jose daniel placed in a 3.3 cm scalp laceration in the right parietal area with a significant hematoma. Hospital course: 1. 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 This occurred about 5 to 6 days after his last alcoholic beverage. He does also have elevated LFTs which started improving while here. Neurology was consulted secondary to the seizure and did not feel the need to be started on any antiseizure medications but recommended an MRI to rule out any structural abnormality. This was obtained which showed a meningioma but nothing intracranial that would be of concern. The recommendation was to not start any antiseizure medication and that if he were to have a second seizure then at that time that he would be started on antiseizure medication. I do recommend that he follow-up with neurology as an outpatient. We also discussed extensively the need to abstain from alcohol given that we have no other explanation for his hepatitis and his seizure activity. I discussed with him plan for discharge today and he expressed understanding of the risk benefits of going home and wants to go home today. 2. Hypertension, GERD, anxiety all chronic medical conditions which complicate his care. His home medications were continued where appropriate Physical Exam Narrative General: Alert, Oriented x3, Cooperative, No apparent distress HEENT: Atraumatic, PERRLA, EOMI, Normocephalic Oral: Moist Mucosa Neck: Supple, No JVD Lungs: Clear to auscultation, Normal air movement, No rhonchi, No wheeze, No rales Cardiovascular: Regular rate, Regular Rhythm, Normal S1, Normal S2, No murmurs Abdomen: Soft, Non Tender, Non-Distended, No Hepato-splenomegaly Extremities: No edema, Capillary Refill Less than 3 Seconds Skin: No rashes, No breakdown Musculoskeletal: No Tenderness to Palpation of Joints or Extremities Neurological: Cranial nerves II-XII grossly intact, Motor Exam 5/5 strength throughout, Sensory exam intact to light touch and pain Psych/Mental Status: Normal Affect, Appropriate Weight / BMI Weight Weight: 242 lb 4.608 oz Body Mass Index (BMI) 34.7 ABG / Lab / Microbiology Data 03/27/23 06:01 03/27/23 06:01 Laboratory: Laboratory Results - last 24 hr 03/25/23 21:30: Hepatitis A Ab Total Negative 03/27/23 06:01: WBC 4.7, RBC 3.97 L, Hgb 12.6 L, Hct 35.8 L, MCV 90.2, MCH 31.7, MCHC 35.2, RDW Std Deviation 43.6, RDW Coeff of Andrea 13.2, Plt Count 148 L, MPV 9.8, Immature Gran % (Auto) 0.000, Neut % (Auto) 52.6, Lymph % (Auto) 26.6, Oliver % (Auto) 20.0 H, Eos % (Auto) 0.6, Baso % (Auto) 0.2, Absolute Neuts (auto) 2.5, Absolute Lymphs (auto) 1.26, Nucleated RBC % 0, Sodium 137, Potassium 2.9 L, Chloride 104, Carbon Dioxide 23.0, Anion Gap 10, BUN 14, Creatinine 0.88, Estim Creat Clear Calc 123.28, Est GFR (MDRD) Af Amer 128, Est GFR (MDRD) Non-Af 106, BUN/Creatinine Ratio 16.0, Glucose 83, Calcium 8.6, Phosphorus 3.4, Total Bilirubin 1.00, AST 342 H, ALT 261 H, Alkaline Phosphatase 51, Total Protein 7.1, Albumin 3.4, Globulin 3.7, Albumin/Globulin Ratio 0.9 Radiography Diagnostic Testing: Radiology Impression Brain MRI 03/26/23 13:56 IMPRESSION: There is active extravasation into the right parietal scalp subgaleal hematoma. Left parafalcine small meningioma. No acute abnormal intracranial finding. Electronically Signed: Anjel Phan MD at 20:35 EDT , D/C Instructions Discharge Diet: No restrictions Call your doctor if you observe: Fever of 101 or Higher, Shortness of breath, Dizziness, Fainting spells, Swelling in the ankles, Chest pain and Increased palpitations (irregular heartbeat) Meaningful Use Info Meaningful Use Diagnoses (Choose all that apply): None applicable Discharge Plan Admission Admit Date/Time: 03/25/23 20:25 Attending Provider: Zaid Mcintosh Primary Care Provider: Jean Marie Consulting Providers: Myra Maldonado; Jad Joseph Instructions Additional Instructions / Restrictions: Follow-up with your PCP for referral to neurology and to obtain a BMP to monitor your potassium which is low. F/u for LFT as your liver function was elevated though improving. Discharge Orders/Prescriptions Prescriptions: New potassium chloride 20 mEq tablet extended release 20 meq PO DAILY Qty: 20 0RF Continued lisinopril 20 mg tablet 20 mg PO DAILY alprazolam 2 mg tablet 2 mg PO QHS Patient Comments: take 1 tablet by mouth at bedtime if needed for up to 30 DAYS promethazine 25 mg tablet 25 mg PO Q6H PRN PRN (Reason: Nausea) Qty: 20 0RF amlodipine 10 mg tablet 10 mg PO DAILY famotidine 20 mg tablet 20 mg PO DAILY Referrals / Follow Up: Jean Marie DO [Primary Care Provider] - Within 1 Week Friend,Ventura, DO [Med Staff - Active Staff] - Within 3 Months Disposition Disposition (needs filled in before D/C Order can be placed): Home, Self Care Charges/Coding Visit Charges Inpatient E&M: 75516 Disch Hosp >30min
--- NOTE | 2023-03-27 17:45 | PN.GI_ITS ---
Subjective Subjective Patient is doing very well not showing any signs of withdrawal. He denies abdominal pain and is tolerating a diet. He underwent MRI today. Objective Data Objective Data Vital Signs: Vital Signs Temp Pulse Resp BP Pulse Ox O2 Del Method O2 Flow Rate 97.9 F 94 16 148/103 H 98 Room Air 96 03/27/23 14:39 03/27/23 14:39 03/27/23 14:39 03/27/23 14:39 03/27/23 14:39 03/27/23 14:39 03/25/23 23:00 Oxygen Flow Rate (L/min) 96 Oxygen Delivery Method Room Air Weight: 242 lb 4.608 oz Body Mass Index (BMI) 34.7 Intake & Output: Intake and Output for Last 24 Hours 03/25/23 03/26/23 03/27/23 23:59 23:59 23:59 Intake Total 1000 / 1400 3850 / 3850 Output Total 0 / 200 1400 / 1400 Balance 1000 / 1200 2450 / 2450 Lab / Micro Data 03/27/23 06:01 03/27/23 06:01 Labs: Laboratory Results - last 24 hr 03/25/23 21:30: Hepatitis A Ab Total Negative 03/27/23 06:01: WBC 4.7, RBC 3.97 L, Hgb 12.6 L, Hct 35.8 L, MCV 90.2, MCH 31.7, MCHC 35.2, RDW Std Deviation 43.6, RDW Coeff of Andrea 13.2, Plt Count 148 L, MPV 9.8, Immature Gran % (Auto) 0.000, Neut % (Auto) 52.6, Lymph % (Auto) 26.6, Josephine % (Auto) 20.0 H, Eos % (Auto) 0.6, Baso % (Auto) 0.2, Absolute Neuts (auto) 2.5, Absolute Lymphs (auto) 1.26, Nucleated RBC % 0, Sodium 137, Potassium 2.9 L, Chloride 104, Carbon Dioxide 23.0, Anion Gap 10, BUN 14, Creatinine 0.88, Estim Creat Clear Calc 123.28, Est GFR (MDRD) Af Amer 128, Est GFR (MDRD) Non-Af 106, BUN/Creatinine Ratio 16.0, Glucose 83, Calcium 8.6, Phosphorus 3.4, Total Bilirubin 1.00, AST 342 H, ALT 261 H, Alkaline Phosphatase 51, Total Protein 7.1, Albumin 3.4, Globulin 3.7, Albumin/Globulin Ratio 0.9 Radiography Diagnostic Testing: Radiology Impression Brain MRI 03/26/23 13:56 IMPRESSION: There is active extravasation into the right parietal scalp subgaleal hematoma. Left parafalcine small meningioma. No acute abnormal intracranial finding. Electronically Signed: Anjel Phan MD at 20:35 EDT , Physical Exam Narrative General: Alert, Oriented x3, Cooperative, No apparent distress HEENT: Atraumatic, PERRLA, EOMI, Normocephalic Oral: Moist Mucosa Neck: Supple, No JVD Lungs: Clear to auscultation, Normal air movement, No rhonchi, No wheeze, No rales Cardiovascular: Regular rate, Regular Rhythm, Normal S1, Normal S2, No murmurs Abdomen: Soft, Non Tender, Non-Distended, No Hepato-splenomegaly Extremities: No edema, Capillary Refill Less than 3 Seconds Skin: No rashes, No breakdown Musculoskeletal: No Tenderness to Palpation of Joints or Extremities Neurological: Cranial nerves II-XII grossly intact, Motor Exam 5/5 strength throughout, Sensory exam intact to light touch and pain Psych/Mental Status: Normal Affect, Appropriate Assessment & Plan Assessment/Plan (1) Alcohol withdrawal seizure: (2) Alcoholic hepatitis: PLAN: Plan 32-year-old with past medical history of possible alcohol abuse who presents with altered mental status followed by tonic-clonic seizure resulting in head trauma. His labs are consistent with acute alcoholic hepatitis. He has a low Madrey score of 20. His mental status is a lot better so he does not need any steroids. total bilirubin 1.40, AST/ALT 704/440, increasing steadly from prior, 11/21/22 ED evaluation for N/V/D w/ CMP at that time w/ T. bili 1.10, AST/ALT 562/330 with lipase mildly elevated in 400 range and from OSH records Liver US 10/27/2022 w/ fatty infiltration of the liver and no gallbladder or biliary pathology and no cholelithiasis and 05/2022 CMP w/ AST/ALT 759733, Alk phos 79, T Bili 0.7. Acute on chronic alcoholic hepatitis: Patient said that he will not drink anymore. He should have a good recovery as his blood work and his imaging is consistent with fatty liver disease from alcohol usage and not cirrhosis. I do not think he needs Mucomyst for glutathione repletion. I would recommend to check him for hepatitis A and hepatitis B and he should get vaccinated if he is negative or if his titers are low. I would also check him for hemochromatosis and amyloidosis as they can be secondary consequences from alcoholic hepatitis and chronic alcoholism. Patient is doing well at this time. We will continue to follow. Patient has had outpatient work-up but unclear exact evaluations, given worsening status and ongoing EtOH heavy intake likely primary etiology. Given concern for loss to follow-up will repeat liver US, obtain hepatitis panel to be cautious to assure no concurrent issues in addition to his alcoholism, request GI involvement to encourage more aggressive early follow-up. Charges/Coding Visit Charges Inpatient E&M: 44210 Subs Hosp L3
== END 2023-03-27 15:22 | disposition home or self-care (01) | DRG 897 ==
LOC: ED 19:35 → ICU 20:45 → PCU 03-27 10:13
PROVIDERS: Admitting Provider Family Medicine; Emergency Provider Emergency Medicine; PCP Student in an Organized Health Care Education/Training Program; Visit Provider Family Medicine
DX: F10.231 Alcohol dependence with withdrawal delirium (principal); N17.9 Acute kidney failure, unspecified; E87.1 Hypo-osmolality and hyponatremia; G40.409 Other generalized epilepsy and epileptic syndromes, not intractable, without status epilepticus; E87.8 Other disorders of electrolyte and fluid balance, not elsewhere classified; K70.10 Alcoholic hepatitis without ascites; D32.9 Benign neoplasm of meninges, unspecified; S01.01XA Laceration without foreign body of scalp, initial encounter; I10 Essential (primary) hypertension; K76.0 Fatty (change of) liver, not elsewhere classified; E87.6 Hypokalemia; E80.7 Disorder of bilirubin metabolism, unspecified; F41.9 Anxiety disorder, unspecified; K21.9 Gastro-esophageal reflux disease without esophagitis; W19.XXXA Unspecified fall, initial encounter; Z87.891 Personal history of nicotine dependence; Y90.9 Presence of alcohol in blood, level not specified
CPT/HCPCS: 70450; 70553; 76705; 80053; 81001; 82009; 82077; 82570; 83036; 83735; 84100; 84300; 85025; 85610; 86706; 86708; 86709; 86803; 87340; 90715; 93005; 94762; 99285; A9575; J7030; A4216

== ENCOUNTER 2023-09-18 20:07 | Emergency (ER) | payer BC, SELFPAY ==
[2023-09-18 20:10] VITALS: BP 146/77; PULSE 119; RESP 20; TEMP 36.1; O2SAT 99; BMI 31.4
[2023-09-18 20:39] LABS: Absolute Lymphocyte Count 4.03 X10^3/uL (0.83-4.51); Absolute Neutrophil Count 4.2 X10^3/uL (2.0-7.7); Basophil# 0.02 X10^3/uL; Basophil% 0.2 % (0-1); Eosinophil# 0.01 X10^3/uL; Eosinophils% 0.1 % (0-5); Hematocrit 46.6 % (40-54); Hemoglobin 16.3 g/dL (13.0-16.5); Lymphocyte # 4.03 X10^3/ul (0.83-4.51); Lymphocyte % 42.1 % (19-41); Mean Corpuscular Hgb 31.8 pg (27.0-32.0); Mean Platelet Vol. 9.8 fl (6.2-12.0); Monocyte# 1.34 X10^3/uL; NRBC Flagged by Analyzer 0 % (0-5); Neutrophil # 4.16 X10^3/uL (2.7-7.7); Neutrophil % 43.4 % (47-70); Platelet Count 266 K/mm3 (150-450); RBC Distribution Width CV 12.9 % (11.6-14.6); RBC Distribution Width SD 43.1 fl (35.1-43.9); Red Blood Count 5.12 M/mm3 (4.6-6.2); White Blood Count 9.6 K/mm3 (4.4-11.0)
[2023-09-18] MEDS: 0.9% Normal Saline (1000mL) 1,000 ML 1000 ML IV (20:43)
[2023-09-18 20:52] LABS: Alcohol, Blood (Medical)-Serum < 3.0 mg/dL
--- NOTE | 2023-09-18 20:53 | CT_ITS ---
STUDY: CT BRAIN WITHOUT CONTRAST REASON FOR EXAM: Male, 33 years old. [facility] RADIATION DOSAGE (If Supplied By Facility): CTDIvol = ( 44.99 ) mGy, DLP = ( 812.98 ) mGycm TECHNIQUE: Transaxial CT imaging of the brain was performed without administration of intravenous contrast material. Individualized dose optimization techniques were used for this CT. COMPARISON: 03/25/2023 FINDINGS: Normal soft tissue structures. Normal calvarium. Normal size ventricles and extra-axial spaces for the patient''s age. Normal white matter tracts of the cerebral hemispheres. Normal basal ganglia and thalami. Normal brainstem. Normal cerebellum. There is no intracranial hemorrhage. There are no findings of an acute ischemic infarction. Normal visualized paranasal sinuses. CT/Brain/Head without Contrast IMPRESSION: Normal unenhanced CT scan of the brain. Electronically Signed: Talib Sosa MD at 21:36 EST ,
[2023-09-18 20:58] LABS: Anion Gap 25 (5-15); BUN 29 mg/dL (7-18); BUN/Creat Ratio 14.8 RATIO (10-20); Calcium,Total 10.1 mg/dL (8.5-10.1); Chloride 93 mmol/L (98-107); Creatinine, Serum 1.96 mg/dL (0.70-1.30); EST Glomerular Filtration Rate 42 mL/min (>60); Est Glom Filt Rate - Afr Amer 51 mL/min (>60); Estimated Creatinine Clearance 56.56 ml/min; Glucose 138 mg/dL (74-106); Lipase 157 U/L (13-75); Potassium 2.9 mmol/L (3.5-5.1); Sodium Level 130 mmol/L (136-145); Troponin-I HS 5 pg/mL (3.0-78.0)
[2023-09-18 21:13] LABS: Lactic Acid 9.5 mmol/L (0.4-1.9)
[2023-09-18] MEDS: 0.9% Normal Saline (1000mL) 1,000 ML 999 ML IV ×2 (21:40→23:18)
[2023-09-18 21:56] VITALS: BP 131/75; PULSE 96; RESP 18; O2SAT 99
[2023-09-18 22:09] LABS: Magnesium 2.1 mg/dL (1.6-2.6)
[2023-09-18 22:13] LABS: Amphetamine Urine VISTA NEGATIVE (<1000 ng/mL); Barbiturate Urine VISTA NEGATIVE (< 200 ng/mL); Benzodiazepine Urine VISTA POSITIVE (< 200 ng/mL); Cocaine Urine VISTA NEGATIVE (< 300 ng/mL); Ecstacy Urine VISTA POSITIVE (< 500 ng/mL); Methadone Urine VISTA NEGATIVE (< 300 ng/mL); PCP Urine VISTA NEGATIVE (< 25 ng/mL); THC Urine VISTA POSITIVE (< 50 ng/mL); Vista UDS pH Range 6
[2023-09-18] MEDS: Potassium Chloride Oral Tablet 20 MEQ 40 MEQ PO (22:17)
--- NOTE | 2023-09-18 22:31 | EX.ED.DYSGE1 ---
HPI History of Present Illness Chief Complaint: Seizure Narrative Narrative: 33-year-old male presenting after a seizure. This was witnessed by his and family. He was standing in the kitchen when this occurred. His caught it on a home family camera. He started with left hand waving and was standing and his caught him before he did fall and hit the floor but he was noted to have some seizure-like movements of his upper extremities and he was frothing at the mouth. The states that this lasted probably from 30 to 45 seconds and the patient was postictal for about a minute and 1/2 to 2 minutes before he started to wake up. Patient has history of seizure recently and was admitted to the hospital. It was presumed that he was a withdrawal seizure although the patient states he has never gone through withdrawal. He does drink. He states he was drinking much less back then and drinking 5-6 drinks a day. He states that he binge drank this weekend with his and he had half a bottle of wine and about 7 whiskeys. On Thursday he had a drinker to watching the football game. He has not had a drink since Thursday. He does not notice any withdrawal symptoms. He was having dinner with his family when this all occurred. He had not had a drink tonight. Denies drug use. Patient and his do state that they followed up with neurology at [facility] via a televisit after the last seizure and apparently Dr. Pate from [facility] went over his records and told him that did not seem like there was much to do for him. He was not started on any antiepileptics. He has not had a seizure since. [facility] Medical History ALD (alcoholic liver disease) Anxiety Asthma Current every day non-nicotine vaping Former cigarette smoker GERD (gastroesophageal reflux disease) History of alcoholic hepatitis History of nicotine vaping HTN (hypertension) Seizure Home Medications alprazolam 2 mg tablet 2 mg PO QHS sleep 11/21/22 [History Last Taken 03/24/23] lisinopril 20 mg tablet 20 mg PO DAILY htn 11/21/22 [History Last Taken Unknown] amlodipine 10 mg tablet 10 mg PO DAILY 03/25/23 [History Last Taken Unknown] rosuvastatin 5 mg tablet 5 mg PO DAILY 09/17/23 [History Last Taken Unknown] Allergy/AdvReac Type Severity Reaction Status Date / Time No Known Allergies Allergy Verified 09/18/23 20:07 Family History Mother Anxiety and depression Father Alcoholism Hypertension Surgical History H/O wisdom tooth extraction S/P shoulder surgery Social History household members: spouse and family Smoking Status: Former smoker Electronic Cigarette Use: without nicotine how long ago did patient quit smoking: Quit cig tob 5-6 yrs prior->nicotine vaping->now non-nicotine vaping. alcohol intake: current details: 8-9 Vodka drinks q HS. substance use type: does not use ROS ROS ED Constitutional Constitutional ED: Denies chills or fever(s) Eyes Eyes: Denies change in vision or diplopia ENT ENT ED: Denies rhinorrhea or sore throat Cardiovascular Cardiovascular: Denies chest pain or palpitations Respiratory/Chest Respiratory/Chest: Denies cough or dyspnea Gastrointestinal Gastrointestinal: Denies abdominal pain, nausea or vomiting Genitourinary Genitourinary ED: Denies dysuria Musculoskeletal Musculoskeletal: Denies arthralgias Integumentary Denies abscess Neurologic Neurologic: Denies headache(s) Psychiatric Psychiatric: Denies anxiety or depression EXAM Physical Exam Const Vital Signs: 09/18/23 20:10 09/18/23 21:56 09/18/23 23:07 Temperature 96.9 F L Temperature Source Temporal Pulse Rate 119 H 96 97 Respiratory Rate 20 H 18 12 Blood Pressure 146/77 H 131/75 H 141/91 H Blood Pressure Mean 100 93 107 Pulse Ox 99 99 98 Oxygen Delivery Method Room Air Room Air Positive well nourished General Appearance ED: NAD; Negative for pallor HEENT Reports moist mucous membranes Negative for trauma or tenderness Eyes PERRL and EOMs intact bilaterally General Eye ED: Negative for pale conjunctiva or scleral icterus Chest Wall inspection of chest normal and palpation of chest normal Resp normal respiratory effort and clear to auscultation bilaterally Auscultation: Negative for rales, rhonchi or wheezes Cardio regular rate and regular rhythm GI normal to inspection, nondistended, normoactive bowel sounds Neuro oriented x3, CN's II-XII intact bilaterally and no sensory deficits noted Sensorium / Orientation: alert Motor Exam: strength 5/5 throughout Psych mental status grossly normal Skin no rashes or lesions noted and no wounds General Skin Exam: Negative for jaundice or pallor MDM MDM MDM Narrative Medical decision making narrative: 33-year-old male presenting after episode of seizure. Differential includes seizure, dehydration, electrode normalities, syncope, EtOH intoxication, EtOH withdrawal, hyponatremia, anemia, intracranial hemorrhage. CBC was obtained to assess white blood cell count, hemoglobin, platelets. CMP to assess liver function, renal function electrolytes, glucose. Lactic acid will also be obtained. Magnesium level will be obtained to assess for low magnesium. Ammonia level to assess for hepatic encephalopathy. High-sensitivity troponin EKG to assess for ischemia. Lipase to assess for pancreatitis. Urine drug screen to assess for drugs of abuse. Patient was put on seizure precautions. He is given 3 L of IV fluids. CT brain was negative. CBC shows no significant leukocytosis. Hemoglobin stable at 16.3. Platelets are normal at 266. Creatinine is elevated today at 1.96 with a baseline of 0.88. Potassium is low at 2.9. This was repleted orally. Magnesium level was assessed and was normal. Monia level was elevated at 99 and patient was given lactulose. Urine drug screen positive for MDMA, benzodiazepines, cannabinoids. Discussed the case with Dr. Shrestha who was supposed to be on-call for Dr. Pate at [facility] and he told me that Dr. Pate is a tumor specialist and not an epileptic specialist. He stated that he is not on-call for [facility]. He also reports that there are no beds in the [facility] system and that he would be able to be seen for at least 5 to 7 days on the wait list. He states he cannot give me any recommendations for medications to treat the patient outpatient for epilepsy. At this point we hung up and he called back and stated he will put him on an expedited follow-up for epilepsy appointment which will be done until after the holidays most likely. Again he could not recommend any medication. At this point I tried to obtain a neurology consult from [facility] and spoke to the transfer line. After extended discussion in the room to talk to neurology who accepted the patient to [facility]. Patient was amenable to going to [facility] at this point. He was given Keppra. Again he was given lactulose for the hyperammonemia. Consent was obtained to transport the patient. His will go home and collect his belongings and brings him here to the bedside. His vital signs of stabilized. Impression: 1. Seizure 2. Alcoholic ketoacidosis 2. Lactic acidosis 3. Hyperammonemia 4. MEREDITH 5. MDMA 6. Cannabinoid use Lab Data Attestation: I reviewed the patient's lab results. Labs: Laboratory Results - last 24 hr 09/18/23 09/18/23 09/18/23 20:17 20:35 21:35 WBC 9.6 RBC 5.12 Hgb 16.3 Hct 46.6 MCV 91.0 MCH 31.8 MCHC 35.0 RDW Std Deviation 43.1 RDW Coeff of Andrea 12.9 Plt Count 266 MPV 9.8 Immature Gran % (Auto) 0.200 Neut % (Auto) 43.4 L Lymph % (Auto) 42.1 H Morehouse % (Auto) 14.0 H Eos % (Auto) 0.1 Baso % (Auto) 0.2 Absolute Neuts (auto) 4.2 Absolute Lymphs (auto) 4.03 Nucleated RBC % 0 Sodium 130 L Potassium 2.9 L Chloride 93 L Carbon Dioxide 12.0 L Anion Gap 25 H BUN 29 H Creatinine 1.96 H Estim Creat Clear Calc 56.56 Est GFR (MDRD) Af Amer 51 L Est GFR (MDRD) Non-Af 42 L BUN/Creatinine Ratio 14.8 Glucose 138 H Lactic Acid 9.5 H* Calcium 10.1 Magnesium 2.1 Ammonia 99.0 H Troponin I High Sens 5 Lipase 157 H Urine Opiates Screen NEGATIVE Urine Methadone Screen NEGATIVE Ur Barbiturates Screen NEGATIVE Ur Phencyclidine Scrn NEGATIVE Ur Amphetamines Screen NEGATIVE MDMA (Ecstasy) Screen POSITIVE H U Benzodiazepines Scrn POSITIVE H Urine Cocaine Screen NEGATIVE U Cannabinoids Screen POSITIVE H Ur Drug Screen Comment Ethyl Alcohol < 3.0 Radiography Diagnostic Testing: Clinical Impression(s) from Imaging Studies Brain CT 09/18/23 20:53 IMPRESSION: Normal unenhanced CT scan of the brain. Electronically Signed: Talib Sosa MD at 21:36 EST , Discharge Plan Triage Chief Complaint: Seizure ED Provider: Miko Dang Dx/Rx/DC Orders Clinical Impression: MEREDITH (acute kidney injury), Alcohol withdrawal seizure, Hyperammonemia, Acute hypokalemia, Acidosis, lactic, Alcoholic ketoacidosis Instructions: ED Seizure, Recurrent (Adult), ED Seizure New [facility] Adult Prescriptions: No Action rosuvastatin 5 mg tablet 5 mg PO DAILY lisinopril 20 mg tablet 20 mg PO DAILY alprazolam 2 mg tablet 2 mg PO QHS Patient Comments: take 1 tablet by mouth at bedtime if needed for up to 30 DAYS amlodipine 10 mg tablet 10 mg PO DAILY Primary Care Provider: Jean Marie Referrals: Jean Marie DO [Primary Care Provider] - Disposition Disposition: Acute Care Hospital Discharge [facility]: [facility]
--- NOTE | 2023-09-18 22:53 | PCM.HP.STD ---
HPI - General General Date of Admission: 09/18/23 Date of Service: 09/18/23 Chief Complaint: Seizure HPI Narrative ALEN STORM, is a 33 M who presents [facility] Medical History ALD (alcoholic liver disease) Anxiety Asthma Current every day non-nicotine vaping Former cigarette smoker GERD (gastroesophageal reflux disease) History of alcoholic hepatitis History of nicotine vaping HTN (hypertension) Seizure Home Medications alprazolam 2 mg tablet 2 mg PO QHS sleep 11/21/22 [History Last Taken 03/24/23] lisinopril 20 mg tablet 20 mg PO DAILY htn 11/21/22 [History Last Taken Unknown] amlodipine 10 mg tablet 10 mg PO DAILY 03/25/23 [History Last Taken Unknown] rosuvastatin 5 mg tablet 5 mg PO DAILY 09/17/23 [History Last Taken Unknown] Allergy/AdvReac Type Severity Reaction Status Date / Time No Known Allergies Allergy Verified 09/18/23 20:07 Family History Mother Anxiety and depression Father Alcoholism Hypertension Surgical History H/O wisdom tooth extraction S/P shoulder surgery Social History household members: spouse and family Smoking Status: Former smoker Electronic Cigarette Use: without nicotine how long ago did patient quit smoking: Quit cig tob 5-6 yrs prior->nicotine vaping->now non-nicotine vaping. alcohol intake: current details: 8-9 Vodka drinks q HS. substance use type: does not use Vital Signs Vital Signs Vital Signs: 09/18/23 20:10 09/18/23 21:56 Temperature 96.9 F L Temperature Source Temporal Pulse Rate 119 H 96 Respiratory Rate 20 H 18 Blood Pressure 146/77 H 131/75 H Blood Pressure Mean 100 93 Pulse Ox 99 99 Oxygen Delivery Method Room Air Weight Weight: 225 lb 12.054 oz Body Mass Index (BMI) 31.4 Results Lab / Micro Data 09/18/23 20:17 09/18/23 20:17 Labs: Laboratory Results - last 24 hr 09/18/23 20:17: WBC 9.6, RBC 5.12, Hgb 16.3, Hct 46.6, MCV 91.0, MCH 31.8, MCHC 35.0, RDW Std Deviation 43.1, RDW Coeff of Andrea 12.9, Plt Count 266, MPV 9.8, Immature Gran % (Auto) 0.200, Neut % (Auto) 43.4 L, Lymph % (Auto) 42.1 H, [place] % (Auto) 14.0 H, Eos % (Auto) 0.1, Baso % (Auto) 0.2, Absolute Neuts (auto) 4.2, Absolute Lymphs (auto) 4.03, Nucleated RBC % 0, Sodium 130 L, Potassium 2.9 L, Chloride 93 L, Carbon Dioxide 12.0 L, Anion Gap 25 H, BUN 29 H, Creatinine 1.96 H, Estim Creat Clear Calc 56.56, Est GFR (MDRD) Af Amer 51 L, Est GFR (MDRD) Non-Af 42 L, BUN/Creatinine Ratio 14.8, Glucose 138 H, Calcium 10.1, Magnesium 2.1, Troponin I High Sens 5, Lipase 157 H, Ethyl Alcohol < 3.0 09/18/23 20:35: Lactic Acid 9.5 H*, Ammonia 99.0 H 09/18/23 21:35: Urine Opiates Screen NEGATIVE, Urine Methadone Screen NEGATIVE, Ur Barbiturates Screen NEGATIVE, Ur Phencyclidine Scrn NEGATIVE, Ur Amphetamines Screen NEGATIVE, MDMA (Ecstasy) Screen POSITIVE H, U Benzodiazepines Scrn POSITIVE H, Urine Cocaine Screen NEGATIVE, U Cannabinoids Screen POSITIVE H, Ur Drug Screen Comment Imagaing Radiology Impression Brain CT 09/18/23 20:53 IMPRESSION: Normal unenhanced CT scan of the brain. Electronically Signed: Talib Sosa MD at 21:36 EST ,
[2023-09-18 23:07] VITALS: BP 141/91; PULSE 97; RESP 12; O2SAT 98
[2023-09-19 00:45] LABS: Reflex Lactate? Y
--- NOTE | 2023-09-19 01:12 | ED.RN ---
PHYSICIANS GAVE ETA OF 0900 TO [facility], REQUESTED [facility] AT 0044. THEY CALLED BACK AT 0101 WITH DECLINES FROM [facility], [facility], [facility], AND [facility]. ALL WITH A TIME OF ABOUT 0044. REASON FOR DECLINE WAS ALL UNAVAILABLE.
[2023-09-19] MEDS: levETIRAcetam IV 1,500 MG in 0.9% Normal Saline (100mL Bag) 100 ML 460 MG IV (01:37)
[2023-09-19] MEDS: Lactulose 20 GM/30 ML UDC 10 GM PO (01:37)
[2023-09-19] MEDS: Ondansetron 4 MG/2 ML Vial IV (01:37)
[2023-09-19 01:57] LABS: Lactic Acid 0.7 mmol/L (0.4-1.9)
[2023-09-19 02:12] VITALS: BP 124/75; PULSE 85; RESP 20; O2SAT 97
--- NOTE | 2023-09-19 02:21 | ED.RN ---
Spoke to supervisor special services Yessenia at [facility]. She states no ALS crews are available and will not be available until 9am. She states she can move transport to [id number] but it will bump other patient in department. Informed supervisor special services that this patient needed to take priority over other.
[2023-09-19 02:48] VITALS: BP 138/96; PULSE 87; RESP 14; O2SAT 99
--- NOTE | 2023-09-19 02:48 | ED.RN ---
Report given to Norm DIXON at [facility].
== END 2023-09-19 06:25 | disposition short-term general hospital (02) ==
PROVIDERS: Emergency Provider Student in an Organized Health Care Education/Training Program; PCP Student in an Organized Health Care Education/Training Program; Visit Provider Student in an Organized Health Care Education/Training Program
DX: R56.9 Unspecified convulsions (principal); N17.9 Acute kidney failure, unspecified; E72.20 Disorder of urea cycle metabolism, unspecified; I10 Essential (primary) hypertension; Z87.891 Personal history of nicotine dependence; E87.6 Hypokalemia; E87.29 Other acidosis; F12.10 Cannabis abuse, uncomplicated; Z79.899 Other long term (current) drug therapy
CPT/HCPCS: 70450; 80048; 80307; 82077; 82140; 83605; 83690; 83735; 84484; 85025; 96361; 96374; 99285; J7030; A4216; J2405